=== PATIENT | male | born 1940 | race Caucasian/White ===

== ENCOUNTER → 2017-02-14 | Outpatient (CLI) | payer OTHER, BC ==
[~2017-02-14] MED LIST: ACETAMINOPHEN325 M1 PO; ADULT LOW DOSE81 MG PO; AMARYL2 M1 PO; AMARYL2 MG PO; AMITRIPTYLINE H50 M2 PO; ASPIR 8181 MG PO; ASPIRIN325 PO; ATORVASTATIN CA40 MG PO; BUPROPION XL300 MG PO; BYSTOLIC 5 MG5 M1 PO; CALCIUM 500 +1 EAC5 PO; CARBIDOPA-LEVO1 EA11 PO; CELEXA40 MG PO; CO Q-10100 MG PO; COZAAR 25 MG TA25 MG PO; D3 DOTS2000 UNIT PO; EFFEXOR XR75 MG PO; FINASTERIDE5 MG PO; FISH OIL 1,0001 EAC5 PO; FISHOIL; FLUOXETINE HCL40 MG PO; GABAPENTIN100 MG PO; GEMFIBROZIL 60600 MG PO; GLUCOSAMINE HC500 MG PO; HYDROCODON-ACE1 EAC7 PO; IMDUR120 MG PO; IRON PO; IRON325 PO; LEVOTHYROXIN0.025 M1 PO; LEVOTHYROXIN0.025 MG PO; LIPITOR40 MG PO; LOPRESSOR 50 MG50 M1 PO; METFORMIN HCL500 M2 PO; METFORMIN PO; METOCLOPRAMIDE10 MG PO; MOBIC15 MG PO; MOBIC7.5 MG PO; MOM PO; MULTIPLE VITAM1 EAC3 PO; MULTIVITAMINS PO; MULTIVITAMINS1 EAC7 PO; NEURONTIN 300300 M1 PO; NEURONTIN600 MG PO; NITROGLYCERIN0.4 MG SL; NITROSTAT0.4 MG PO; NITROSTAT0.4 MG SL; NORVASC5 MG PO; PERCOCET PO; PHISOHEX148 ML TP; PLAVIX 75 MG TA75 MG PO; PRILOSEC 20 MG20 MG PO; SENNA PO; TAMSULOSIN HCL0.4 MG PO; TOPROL XL50 MG PO; TRILEPTAL150 MG PO; VITAMIN B-1100 MG PO; VITAMIN D1000 UNI1 PO; ZOCOR80 MG PO
== END ==
LOC: SLEEPLAB 14:30
DX: G47.33 Obstructive sleep apnea (adult) (pediatric) (principal)

== ENCOUNTER → 2017-02-15 | Outpatient (CLI) | payer OTHER, BC | LOC: SLEEPLAB 06:00 | DX: G47.33 Obstructive sleep apnea (adult) (pediatric) (principal) ==

== ENCOUNTER → 2017-02-28 | Outpatient (CLI) | payer OTHER, BC ==
[~2017-02-28] VITALS: Ht 175.3 cm; Wt 94.5 kg
--- NOTE | ~2017-02-28 | HPC ---
[facility] [address] [place] [address] PAIN MANAGEMENT CONSULTATION Name: TONKIERRA MEGHAN Room #: REG [facility] Lester#: [id number] Admission: 02/28/17 Attend Phys: Ruben Driscoll DO Discharge: Date of : 40 Report #: [id number] THIS REPORT FOR: //name// CC: JARRED physician/PCP Ruben Driscoll DATE OF SERVICE: 02/28/2017 The patient is a pleasant 77-year-old gentleman seen about a year and a half ago in 08/2015, given epidural injection with about 50% improvement of baseline pain. The patient was somewhat lost to follow up. Returns to pain clinic today. We had a prolonged visit from [id number] (ultimately taken to the procedure room at 1500). The patient notes he has had 2 back surgeries since I saw him. Notes pain continues to be problematic primarily at the base of the spine. He notes pain is exacerbated with standing, walking, pretty much any axial weightbearing. He rates his pain a 5 on VAS. PHYSICAL EXAMINATION: Shows 77-year-old gentleman, BMI is 30.8 kilograms per meter squared. Vital signs are stable. He has a little bit of a tremor though the neurologist says he has taken him off carbidopa/levodopa. He is telling me that he does not have Parkinson's per se, he has a "form of Parkinson's" (?). He has a little bit of an ataxic gait, certainly antalgic. Lumbar flexion is limited to 45 degrees. He is able to bear weight on his toes and heels. Balance is poor. Very tender at the base of the spine L5-S1 area, really no significant tenderness over the SI joints. Rotation and sidebending exacerbates pain. Melodie test is minimally positive. MEDICATIONS: List was reconciled. The patient is off meloxicam. Was taken off gabapentin after a mini stroke. ASSESSMENT: Symptomatic lumbar spondylosis, lumbosacral spondylosis, history of multiple lumbar decompressive laminectomies and fusion. Axial back pain component. RECOMMENDATION: 1. Long discussion with the patient today about therapeutic option. 2. We will get x-rays of the lumbar spine, AP and lateral flexion and extension. 3. Bilateral L5-S1 facet joint injections under fluoroscopy today. 4. Follow up in 1-2 weeks to reevaluate. We will review diagnostic findings, may consider medial branch dorsal rami diagnostic blocks and consideration of neurolysis of same. [address] [address] PAIN MANAGEMENT CONSULTATION Name: KIERRA CAMILO Room #: REG S[facility] Batista#: [id number] Admission: 02/28/17 Attend Phys: Ruben Driscoll DO Discharge: Date of : 40 Report #: [id number] PROCEDURE: Bilateral L5-S1 facet joint injections under fluoroscopy, fluoroscopy time was under 15 seconds. PROCEDURE NOTE: After written informed consent was obtained, the patient was taken to fluoroscopy suite, placed in the prone position. After sterile prep and drape, skin wheal with Xylocaine was raised. A 22-gauge stylet needle was placed to contact the inferior aspect of the left L5-S1 facet joint. AP and lateral projections showed good needle placement. Second needle was placed in an identical fashion in the right SI joint. A 20 mg triamcinolone plus 1 mL of 0.5% preservative-free bupivacaine was injected at each site. Both needles were removed, area was cleansed, Band-Aids applied. The patient was monitored for an appropriate period of time, discharged in good and stable condition, noting good incremental improvement of baseline pain, pain was 5 on VAS on admission, was absent on discharge. We will get x-rays and follow up in 1-2 weeks. <ELECTRONICALLY SIGNED> By: Ruben Driscoll DO 03/02/17 0802 [id number] Ruben Driscoll DO /nt
[2017-02-28 14:11] VITALS: BP 141/84
== END | disposition home or self-care (01) ==
LOC: PAIN 07:28
DX: M47.816 Spondylosis without myelopathy or radiculopathy, lumbar region (principal); M47.817 Spondylosis without myelopathy or radiculopathy, lumbosacral region; Z98.890 Other specified postprocedural states; Z86.73 Personal history of transient ischemic attack (TIA), and cerebral infarction without residual deficits; Z79.82 Long term (current) use of aspirin; Z79.899 Other long term (current) drug therapy

== ENCOUNTER → 2017-03-24 | Outpatient (CLI) | payer OTHER, BC ==
[~2017-03-24] VITALS: Ht 175.3 cm; Wt 95.1 kg
--- NOTE | ~2017-03-24 | HPC ---
[facility] [place] [address] PAIN MANAGEMENT CONSULTATION Name: KIERRA CAMILO Room #: REG SANDHYA Batista#: [id number] Admission: 03/24/17 Attend Phys: Ruben Driscoll DO Discharge: Date of : 40 Report #: [id number] THIS REPORT FOR: //name// CC: Jb Driscoll DATE OF SERVICE: 03/24/2017 This 77-year-old gentleman well known to the pain clinic. He had a L4-L5 fusion. He has L5-S1 mediated pain across the low back. I had done an L5-S1 facet joint injection with excellent transient improvement of symptoms. Last visit, we did a bilateral L4 and L5 medial branch dorsal rami diagnostic blocks. The patient had excellent short term relief of pain. Did have symptoms prior to local anesthetic and a little bit of weak legs post procedure. This did resolve nicely. Returns to pain clinic today desirous of moving forward with radiofrequency neurolysis. Right side is a little worse than the left, we had elected to proceed with right-sided radiofrequency neurolysis L4-L5. PROCEDURE NOTE: After written informed consent was obtained including risks of increased pain, weakness, and paralysis, the patient wished to proceed. He was taken to the fluoroscopy suite and placed in prone position. After sterile prep and drape, skin with Xylocaine was raised x2 . 10 mm RFK needles were placed to contact the right sacral alar notch, second needle was placed to contact the superior articular process of L5, lateral to the L4-L5 facet joint. AP and lateral projections showed good needle placement corresponding to the right L4 and L5 medial branch dorsal rami nerves. Initial impedance, sensory and motor testing was accomplished. A 1 mL of 1% preservative-free Xylocaine was injected through each needle. Both needles were heated to 80 degrees centigrade for 90 seconds. A 20 mg triamcinolone plus 1 mL of 0.5% preservative-free bupivacaine was injected at each site. Both needles removed. The area was cleansed. Band-Aids applied. The patient monitored for an appropriate period of time. Did have a little weakness in the right leg secondary to local anesthetic spread. Again, this largely resolved after prolonged monitoring. Discharged in good and stable condition. Follow up in 1 week for consideration for left L4 and L5 dorsal rami neurolysis. <ELECTRONICALLY SIGNED> By: Ruben Driscoll DO 03/25/17 0731 1622 0529 Ruben Driscoll DO /nt
[2017-03-24 13:48] VITALS: BP 136/73
== END | disposition home or self-care (01) ==
LOC: PAIN 06:56
DX: M54.16 Radiculopathy, lumbar region (principal)

== ENCOUNTER → 2017-03-31 | Outpatient (CLI) | payer OTHER, BC | LOC: NUC 08:08 | DX: I25.10 Atherosclerotic heart disease of native coronary artery without angina pectoris (principal); I10 Essential (primary) hypertension; E78.5 Hyperlipidemia, unspecified; E11.9 Type 2 diabetes mellitus without complications; Z87.891 Personal history of nicotine dependence ==

== ENCOUNTER → 2017-04-11 | Outpatient (CLI) | payer OTHER, BC ==
--- NOTE | ~2017-04-11 | 2DMMODE ---
[facility] [address] [place] [address] 2 D/M-MODE ECHOCARDIOGRAM Name: TONKIERRAJONA CHRISTIANSON Room #: REG [facility]#: [id number] Admission: 04/11/17 Attend Phys: Terence Katz MD Discharge: Date of : 40 Date of Service: 04/11/17 1634 Report #: [id number] THIS REPORT FOR: //name// APPROVED REPORT Study performed: 04/11/2017 16:15:14 EXAM: Comprehensive 2D, Doppler, and color-flow Echocardiogram Patient Location: Out-Patient Room #: Echo lab Status: routine BSA: 2.09 HR: 69 bpm BP: 140/88 mmHg Other Information Study Quality: Adequate Indications Diabetes CAD Cardiomyopathy S^P CABG. 2D Dimensions RVDd: 40.18 mm LVEF(%): 35.11 (>50%) IVSd: 10.86 (7-11mm) LVOT Diam: 23.95 (18-24mm) LVDd: 50.66 mm PWd: 10.86 (7-11mm) Ascending Ao: 36.52 (22-36mm) LVDs: 42.12 (25-40mm) Aortic Root: 36.96 mm IVC: 19.00 mm Wilkes's LVEF: 35.11 % Volumes Left Atrial Volume (Systole) Single Plane 4CH: 50.09 mL Single Plane 2CH: 52.12 mL LA ESV Index: 26.00 mL/m2 Pulmonary Valve PV Peak Chris.: 1.04 m/s PV Peak Gr.: 4.29 mmHg ME End Vmax: 0.68 m/s Tricuspid Valve TR Peak Chris.: 1.99 m/s TR Peak Gr.: 15.89 mmHg [facility] [place] [address] [address] [place] [address] 2 D/M-MODE ECHOCARDIOGRAM Name: KIERRA CAMILO Room #: REG [facility]#: [id number] Admission: 04/11/17 Attend Phys: Terence Katz MD Discharge: Date of : 40 Date of Service: 04/11/17 1634 Report #: [id number] PA Pressure: 21.00 mmHg Left Ventricle Left ventricle is at the upper limits of normal. There is hypokinesis in the mid to basal inferior wall. Borderline concentric left ventricular hypertrophy. Left ventricular systolic function is mildly decreased. LVEF is 40-45%. This study is not technically sufficient to allow evaluation of the LV diastolic function. Right Ventricle The right ventricle is normal size. The right ventricular systolic function is normal. Atria Left atrium is at the upper limits of normal. Right atrium is at the upper limits of normal. Aortic Valve The aortic valve is sclerotic. Trace aortic regurgitation. There is no aortic valvular stenosis. Mitral Valve The mitral valve is normal in structure. Mild to moderate mitral regurgitation. No evidence of mitral valve stenosis. Tricuspid Valve The tricuspid valve is normal in structure. There is trace to mild tricuspid regurgitation. The right atrial pressure is estimated at mmHg. There is no pulmonary hypertension. Pulmonic Valve The pulmonary valve is normal in structure. Trace pulmonic regurgitation. Great Vessels The aortic root is normal in size. IVC is normal in size and collapses >50% with inspiration. Pericardium There is no pericardial effusion. <Conclusion> Left ventricle is at the upper limits of normal. Left ventricular systolic function is mildly decreased. There is hypokinesis in the mid to basal inferior wall. The right ventricle is normal size. [facility] [address] [place] [address] 2 D/M-MODE ECHOCARDIOGRAM Name: KIERRA CAMILO Room #: REG [facility]#: [id number] Admission: 04/11/17 Attend Phys: Terence Katz MD Discharge: Date of : 40 Date of Service: 04/11/17 1634 Report #: [id number] Left atrium is at the upper limits of normal. The aortic valve is sclerotic. Mild to moderate mitral regurgitation. There is no pericardial effusion. <ELECTRONICALLY SIGNED> By: Terence Katz MD 04/11/17 1634 1634 1634 Terence Katz MD /INF
== END ==
LOC: CV 06:45
DX: I42.9 Cardiomyopathy, unspecified (principal); I25.10 Atherosclerotic heart disease of native coronary artery without angina pectoris; E11.9 Type 2 diabetes mellitus without complications; I34.0 Nonrheumatic mitral (valve) insufficiency; I10 Essential (primary) hypertension; E78.00 Pure hypercholesterolemia, unspecified; Z95.1 Presence of aortocoronary bypass graft

== ENCOUNTER → 2018-05-30 | Outpatient (CLI) | payer OTHER, BC ==
[~2018-05-30] VITALS: Ht 175.3 cm; Wt 91.4 kg
[~2018-05-30] MED LIST changes: +LIPITOR80 MG PO; +MIDODRINE HCL 55 M1 PO; +NORVASC PO; +PAMELOR25 MG PO; +TOPROL XL25 MG PO; +UROXATRAL PO
--- NOTE | ~2018-05-30 | HPC ---
[facility] [place] [address] PAIN MANAGEMENT CONSULTATION Name: CAMILOKIERRA CHRISTIANSON Room #: REG [facility] Lester#: [id number] Admission: 05/30/18 Attend Phys: Sukumar Driscoll DO Discharge: Date of : 40 Report #: [id number] THIS REPORT FOR: //name// CC: Sharmila Sandersmonty Lainez DATE OF SERVICE: 05/30/2018 REFERRING NURSE PRACTITIONER: Sharmila Hill. CHIEF COMPLAINT: Low back pain. HISTORY OF PRESENT ILLNESS: As you know, the patient is a 78-year-old male who was followed by my partner, Dr. Ruben Driscoll, for an extended period of time, undergoing epidural injections to address lumbar radicular symptoms. He has undergone bilateral MBB x 2 with RFL of the lumbar medial branch nerves, with only transient improvement in symptoms. He sought evaluation through Neurosurgery, who advised the patient that he may be a candidate for a spinal cord stimulator versus intrathecal pump. Apparently, it was determined he was a good candidate for intrathecal pump, but there were concerns of his reaction to morphine, which is fairly classic histamine response to morphine infusions of pruritus. He has been referred back to our clinic to discuss spinal cord stimulator therapy. He denies new injury, new trauma or any changes in medical history since our last visit, except for his response to the intrathecal pump trial, which was effective, reporting 100% improvement in overall pain, but the side effects of pruritus were such that the patient and his are concerned that his side effects of the drug would be more profound than the improvement he received. ALLERGIES: DILIP INHIBITORS. CURRENT MEDICATIONS: Metformin 500 mg twice a day, levothyroxine 25 mcg per day, tamsulosin 0.4 mg once a day, finasteride 5 mg per day, glimepiride 2 mg per day, venlafaxine XR 75 mg per day, multivitamin 1 tab per day, aspirin 325 mg per day, atorvastatin 80 mg per day, metoprolol XL 25 mg a day, 10 mg per day and midodrine 5 mg twice a day. SOCIAL HISTORY: The patient denies tobacco, alcohol, IV or illicit drug use. He is retired. He is accompanied by his , who is present in the room today. IMAGING: There is no new imaging available. PQRS: The patient has osteoarthritic changes of the lumbar region. He has no rheumatoid arthritis. He is placing pain intensity at 9/10. He is a fall risk and has had multiple falls in the past 3 months. He is [place] [address] PAIN MANAGEMENT CONSULTATION Name: KIERRA CAMILO Room #: REG Jordy Batista#: [id number] Admission: 05/30/18 Attend Phys: Sukumar Driscoll DO Discharge: Date of : 40 Report #: [id number] of ambulatory device and we have advised him to initiate use of a cane, preferably a 4-prong cane or roller walker. He is not on blood thinners. He has history of hypertension. He is not on opioids. He has a low opioid addiction potential. His pain impact score is 62/70, indicating severe near complete interference of daily activities secondary to pain. PHYSICAL EXAMINATION: VITAL SIGNS: Blood pressure 107/75, pulse of 101 and respiratory rate 16 and unlabored. The patient is 95% on room air. Height 5 feet 9 inches tall, weight 201.6 pounds and BMI calculated 29.8. GENERAL: Well-developed, well-nourished and well-hydrated 78-year-old male, who appears his stated age, placing current pain score at 9-10/10. HEENT: Normocephalic, atraumatic. Pupils equal, round and reactive to light. Extraocular muscles are intact. EXTREMITIES: Show no clubbing, no cyanosis and no edema. MUSCULOSKELETAL: Lower extremity strength appears symmetrical, 5/5, intact to light touch from L1 through S2 dermatomes. Seated straight leg raising negative. Supine straight leg raising positive. Deep tendon reflexes 2+/4, patella and Achilles. Ankle clonus negative. Babinski is negative. ASSESSMENT: 1. Symptomatic lumbar radiculopathy. 2. Spinal stenosis of the lumbar spine. 3. 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 4. Lumbosacral spondylosis with radiculopathy. 5. Degeneration of the lumbar spine. 6. Chronic intractable pain. PLAN: 1. The patient has been referred back to our clinic by nurse practitioner, Sharmila Hill, for evaluation for possible spinal cord stimulator therapy. The patient has undergone multiple epidural injections, all of which have provided only transient improvement in symptoms. He has already undergone medial branch nerve blocks and radiofrequency lesioning of the lumbar medial branch nerves, with only mild pain improvement, lasting no more than 1 to 1-1/2 months of suboptimal response to that treatment. He subsequently discussed the possibility of undergoing intrathecal pump therapy with [facility] and did very well with the intrathecal pump trial; in fact, reporting 100% improvement in overall pain. He had no pain during the trial. He did have side effects to the morphine, fairly classic histamine response with pruritus that was difficult for the patient to tolerate as well as some nausea. Certainly this could be mitigated with utilizing either lower dose morphine or trialing other medications within the intrathecal pump. The patient was referred to our clinic to discuss the possible spinal cord stimulator trial implantation to address axial back pain and lower extremity symptoms. [facility] [address] [place] [address] PAIN MANAGEMENT CONSULTATION Name: CAMILOKIERRA MEGHAN Room #: REG [facility].#: [id number] Admission: 05/30/18 Attend Phys: Sukumar Driscoll DO Discharge: Date of : 40 Report #: [id number] We discussed with the patient today spinal cord stimulator therapy. We did advise the patient that capture of pain of the lower lumbar spine would not be possible with a spinal cord stimulator. These devices do not provide good benefit for arthritic changes in the lower back. They will help with his buttock and posterolateral thigh pain typical of lumbar radiculopathy, but improvement in his axial back pain would not be a possibility with the current spinal cord stimulator technology. We discussed this with the patient today, did provide the patient with information if he wishes to move forward with the spinal cord stimulator to address his buttock and lower extremity pain, which should be easily covered with the device. 2. The patient was given information about the spinal cord stimulator both in written and verbal form today. We spent over 29 minutes of time discussing the efficacy of the spinal cord stimulator. We talked about the trial, the device itself and the implantation of the device and the risks of having an implanted device, specifically with infection risks. We also discussed the fact that with a spinal cord stimulating device, imaging would have to be coordinated more carefully, though it does not preclude him from undergoing MRI imaging. The patient was given all this information today to review the information with his and to consider his options. 3. I did provide the patient with a referral to Psychiatry. As you know, requirements of Medicare require that patients undergo psychiatric evaluation before they can undergo implantation of a temporary spinal cord stimulating device and move on to permanent. He was given the names of psychiatrists in the area. If he wishes to move forward with this device, he needs to make an appointment and be seen. Once he is seen, we then can begin our process of approvals. 4. I had a very long discussion today with the patient and his about the intrathecal pump. The fact that he received 100% improvement in overall pain is quite encouraging. I recommended that the patient discuss this further with his neurosurgery team. It appears that his symptoms were related to morphine specifically. It is not unusual to have a histamine response to morphine causing pruritus that cannot be discontinued. There is also a possibility that the dosing given may be excessive for the patient's pathology and it can be reduced, which would reduce the side effects. Certainly a change in medication to something like hydromorphone could be more effective and reduce his potential side effects typically seen with morphine. The patient is planning to return to talk this over with his primary care physician and his neurosurgery team. 5. We wish to thank you for the opportunity to see the patient in consultation. We will be available to see the patient back in followup visit on an as-needed basis. We will be available to review the patient's psychiatric evaluation if he has not completed and we can keep you apprised of our moving forward if the patient wishes to do so with the spinal cord stimulator. [address] [address] PAIN MANAGEMENT CONSULTATION Name: KIERRA CAMILO Room #: REG SANDHYA Batista#: [id number] Admission: 05/30/18 Attend Phys: Sukumar Driscoll DO Discharge: Date of : 40 Report #: [id number] We wish to thank nurse practitioner Sharmila Hill for the referral of this patient back to our clinic. Again, we wish to thank you for this opportunity. By: 0824 1004 Sukumar Driscoll DO /nt
[2018-05-30 08:07] VITALS: BP 107/75
--- NOTE | 2018-05-30 08:19 | NUR ---
Pain Clinic Assessment: 1. History of Osteoarthritis: Not Applicable History of Rheumatoid Arthritis: Not Applicable 2. Height: 5 ft. 9 in. 175.3 cm. Weight: 201.6 lb. oz. 91.445 kg. Patient's BMI: 29.8 3. Vital Signs: BP: 107/75 Pulse: 101 Resp: 16 Temp: 02 Sat: 95 ECG Mon: 4. Pain Intensity: 9-10 5. Fall Risk: Dizziness: N Needs help standing or walking: Y Fallen in the last 3 months: Y Fall risk comments: 6. Patient on Blood Thinner: None 7. History of Hypertension: Y 8. Opioid Therapy greater than 6 weeks: N Opiate Contract Signed: 9. Risk Assessment Tool Provided: LOW RISK 05/18 10. Functional Assessment Tool: 11. Recreational Drug Use: Never Drug Type: Tobacco Use: Former Smoker Tobacco Type: Amount or Packs/day: How Many Years: Alcohol Use: Yes Frequency: Monthly Quant: 1
== END ==
LOC: PAIN 06:42
DX: M54.5 Low back pain (principal); G89.29 Other chronic pain; I10 Essential (primary) hypertension; Z79.899 Other long term (current) drug therapy; Z87.891 Personal history of nicotine dependence; Z72.89 Other problems related to lifestyle

== ENCOUNTER → 2018-08-31 | Outpatient (CLI) | payer OTHER, BC ==
--- NOTE | 2018-08-31 11:05 | 2DMMODE ---
[facility] [place] [address] 2 D/M-MODE ECHOCARDIOGRAM Name: TONKIERRAJONA CHRISTIANSON Room #: REG [facility]#: [id number] ������������� Admission: 08/31/18 ������������� Attend Phys: Terence Katz MD Discharge: ��� ������������� ��� Date of : 40 Date of Service: 08/31/18 1105 �� Report #: [id number] �������� ��������������������������������������������[id number] THIS REPORT FOR: //name// APPROVED REPORT Study performed: 08/31/2018 10:00:07 EXAM: Comprehensive 2D, Doppler, and color-flow Echocardiogram Patient Location: Out-Patient Room #: Echo lab 2 Status: routine BSA: 2.07 HR: 80 bpm BP: 138/78 mmHg Rhythm: NSR Other Information Study Quality: Adequate Indications CAD 2D Dimensions RVDd: 33.09 mm IVSd: 10.88 (7-11mm) LVOT Diam: 23.10 (18-24mm) LVDd: 46.39 mm PWd: 10.88 (7-11mm) Ascending Ao: 42.23 (22-36mm) LVDs: 41.00 (25-40mm) Aortic Root: 42.68 mm IVC: 17.00 mm Volumes Left Atrial Volume (Systole) Single Plane 4CH: 50.36 mL Single Plane 2CH: 54.46 mL LA ESV Index: 31.00 mL/m2 Aortic Valve AoV Peak Chris.: 1.14 m/s AO Peak Gr.: 5.19 mmHg LVOT Max P.56 mmHg LVOT Max V: 0.80 m/s JOCY Vmax: 2.94 cm2 Mitral Valve E/A Ratio: 0.6 MV Decel. Time: 320.71 ms MV E Max Chris.: 0.62 m/s [facility] [address] [address] 2 D/M-MODE ECHOCARDIOGRAM Name: TONKIERRAJONA CHRISTIANSON Room #: REG [facility]#: [id number] ������������� Admission: 08/31/18 ������������� Attend Phys: Terence Katz MD Discharge: ��� ������������� ��� Date of : 40 Date of Service: 08/31/18 1105 �� Report #: [id number] �������� ��������������������������������������������[id number] MV A Chris.: 1.10 m/s MV PHT: 93.01 ms IVRT: 207.61 ms Pulmonary Valve PV Peak Chris.: 1.10 m/s PV Peak Gr.: 4.90 mmHg Pulmonary Vein P Vein S: 0.54 m/s P Vein A: 0.23 m/s P Vein D: 0.21 m/s P Vein A Dur.: 83.0 msec P Vein S/D Ratio: 2.57 Tricuspid Valve TR Peak Chris.: 2.54 m/s TR Peak Gr.: 25.73 mmHg PA Pressure: 30.00 mmHg Left Ventricle The left ventricle is normal size. There is hypokinesis in the inferior wall. There is hypokinesis in the inferior wall. There is normal left ventricular wall thickness. Left ventricular systolic function is mildly decreased. LVEF is 45%. Grade I - abnormal relaxation pattern. Right Ventricle The right ventricle is normal size. The right ventricular systolic function is normal. Atria The left atrium size is normal. The right atrium size is normal. Aortic Valve The aortic valve is normal in structure. Aortic valve is calcified. Trace aortic regurgitation. There is no aortic valvular stenosis. Mitral Valve The mitral valve is normal in structure. Mild mitral regurgitation. No evidence of mitral valve stenosis. Tricuspid Valve The tricuspid valve is normal in structure. There is trace tricuspid regurgitation. Estimated PAP 30 mmHg. Pulmonic Valve [facility] [address] [place] [address] 2 D/M-MODE ECHOCARDIOGRAM Name: CAMILOKIERRA MEGHAN Room #: REG [facility]#: [id number] ������������� Admission: 08/31/18 ������������� Attend Phys: Terence Katz MD Discharge: ��� ������������� ��� Date of : 40 Date of Service: 08/31/18 1105 �� Report #: [id number] �������� ��������������������������������������������[id number] The pulmonary valve is normal in structure. There is no pulmonic valvular regurgitation. Great Vessels The aortic root is normal in size. IVC is normal in size and collapses >50% with inspiration. Pericardium There is no pericardial effusion. <Conclusion> The left ventricle is normal size. There is normal left ventricular wall thickness. Left ventricular systolic function is mildly decreased. LVEF is 45%. Grade I - abnormal relaxation pattern. The right ventricle is normal size. The left atrium size is normal. Aortic valve is calcified. Trace aortic regurgitation. Mild mitral regurgitation. There is trace tricuspid regurgitation. Estimated PAP 30 mmHg. ��������������������������������������������� <ELECTRONICALLY SIGNED> ���������������������������������������� By: Terence Katz MD ��������������������������������������������� 08/31/18 1105 1105 1105 Terence Katz MD /INF
== END ==
LOC: CV 09:12
DX: I08.0 Rheumatic disorders of both mitral and aortic valves (principal); I10 Essential (primary) hypertension

== ENCOUNTER → 2018-12-25 | Outpatient (CLI) | payer OTHER, BC | LOC: NUC 08:24 | DX: I25.10 Atherosclerotic heart disease of native coronary artery without angina pectoris (principal); E78.5 Hyperlipidemia, unspecified; I10 Essential (primary) hypertension; I48.91 Unspecified atrial fibrillation; I25.2 Old myocardial infarction; Z95.1 Presence of aortocoronary bypass graft ==

== ENCOUNTER → 2019-02-27 | Outpatient (CLI) | payer OTHER, BC | LOC: RAD 11:59 | DX: M48.062 Spinal stenosis, lumbar region with neurogenic claudication (principal); M43.26 Fusion of spine, lumbar region; M43.16 Spondylolisthesis, lumbar region; M41.86 Other forms of scoliosis, lumbar region ==

== ENCOUNTER 2019-06-21 10:57 | Inpatient (IN) | payer OTHER, BC ==
[~2019-06-21] VITALS: Ht 175.3 cm; Wt 120.5 kg
--- NOTE | ~2019-06-21 | EKG ---
[facility] [place] [address] ELECTROCARDIOGRAM REPORT Name: KIERRA CAMILO Room #: [facility].#: [id number] Admission: Attend Phys: Discharge: Date of : 40 Report #: [id number] THIS REPORT FOR: cc: Wilfredo Villalobos MD ~ THIS REPORT FOR: //name// [facility] ED Test Date: 2019-06-21 Test Time: 11:13:59 Pat Name: KIERRA CAMILO Department: Room: Gender: M Computer Art Instructor: LARA : 1940 Requested By: Jamie Mitchell Order Number: [id number] MD: Measurements Intervals [place] Rate: 113 P: 79 TN: 157 QRS: -50 QRSD: 130 T: 76 QT: 348 QTc: 478 Interpretive Statements Sinus tachycardia Nonspecific IVCD with LAD Anteroseptal infarct, old Compared to ECG 04/18/2017 07:01:56 Sinus rhythm no longer present Ventricular premature complex(es) no longer present T-wave abnormality no longer present Myocardial infarct finding still present [email or web address] By: 1113 1113 Epiphany EpiphanyMD /EPI
[2019-06-21 10:58] VITALS: BP 200/146
[2019-06-21 12:12] LABS: ABSOLUTE NEUTROPHILS 7.7 thou/uL (1.4-8.2); BASOPHILS 0.5 % (0.0-2.0); EOSINOPHILS 1.2 % (0.0-3.0); HEMATOCRIT 46.4 % (42.0-52.0); HEMOGLOBIN 15.5 gm/dL (14.0-18.0); LYMPHOCYTES 18.1 % (24.0-44.0); MCH 30.7 pg (26.0-34.0); MCHC 33.3 g/dL (28.0-37.0); MCV 92.1 fL (80.0-100.0); MONOCYTES 7.7 % (1.0-8.0); PLATELET COUNT 258 thou/uL (150-400); POLYS 72.5 % (36.0-66.0); RBC 5.05 mil/uL (4.50-6.00); RDW 13.8 % (10.5-14.5); WBC 10.6 thou/uL (4.0-11.0)
[2019-06-21 12:14] LABS: URINE BILIRUBIN NEGATIVE (Negative); URINE BLOOD 1+ (Negative); URINE CLARITY CLEAR; URINE COLOR YELLOW; URINE GLUCOSE-RANDOM* NEGATIVE (Negative); URINE KETONES NEGATIVE (Negative); URINE LEUKOCYTES-REFLEX NEGATIVE (Negative); URINE NITRITE-REFLEX NEGATIVE (Negative); URINE PROTEIN (DIPSTICK) 1+ (Negative); URINE SPECIFIC GRAVITY >= 1.030 (1.005-1.035); URINE UROBILINOGEN 0.2 E.U./dl (0.2-1.0)
[2019-06-21 12:15] LABS: CALCIUM 9.4 mg/dL (8.5-10.1); CREATININE 1.3 mg/dL (0.7-1.3); POTASSIUM 3.6 mmol/L (3.5-5.1)
[2019-06-21 12:22] LABS: AMP/METHAMP Negative (Negative); BARBITURATES Negative (Negative); BENZODIAZEPINES Negative (Negative); COCAINE Negative (Negative); METHADONE Negative (Negative); OPIATES Negative (Negative); PCP Negative (Negative)
[2019-06-21 12:24] LABS: ALBUMIN 4.3 g/dL (3.4-5.0); TOTAL BILIRUBIN 0.5 mg/dL (<0.1-1.0); TOTAL PROTEIN 8.1 g/dL (6.4-8.2)
[2019-06-21 12:26] LABS: TROPONIN-I 5.94 ng/mL (<0.06)
[2019-06-21 12:53] LABS: SQUAMOUS 4-10 Moderate /LPF (0-3)
[2019-06-21 12:54] LABS: AMORPHOUS URATES Moderate /LPF (None Seen); BACTERIA-REFLEX 1-9 Few /HPF (None Seen); CASTS None Seen /LPF (None Seen); URINE RBC 0-2 Rare /HPF (0-2); URINE WBC-REFLEX 0-5 Rare /HPF (0-5)
[2019-06-21 13:08] LABS: INR 1.2
[2019-06-21 13:09] LABS: APTT 23.8 Seconds (24.5-32.8)
[2019-06-21 13:38] VITALS: BP 142/93
[2019-06-21] MEDS ORDERED: PROSCAR 5MG TABL5 M1 PO (13:41)
[2019-06-21] MEDS ORDERED: LIPITOR80 MG PO (13:41)
[2019-06-21] MEDS ORDERED: NORVASC 2.5 MG2.5 M1 PO (13:41)
[2019-06-21] MEDS ORDERED: LEVO-T50 MCG PO (13:42)
[2019-06-21] MEDS ORDERED: FENOFIBRATE150 MG PO (13:42)
[2019-06-21] MEDS ORDERED: TOPROL XL50 MG PO (13:43)
[2019-06-21] MEDS ORDERED: MIDODRINE HCL2.5 M1 PO (13:43)
[2019-06-21] MEDS ORDERED: METFORMIN HCL500 M3 PO (13:43)
[2019-06-21] MEDS ORDERED: VENLAFAXINE HC150 MG PO (13:44)
[2019-06-21] MEDS ORDERED: OSTERA TABLET1 EAC1 PO (13:45)
[2019-06-21] MEDS ORDERED: ASPIR-TRIN325 MG PO (13:45)
[2019-06-21 13:54] LABS: CHOLESTEROL 245 mg/dL (<200); HDL CHOLESTEROL 41 mg/dL (>40); LDL CHOLESTEROL 155 mg/dL (<100); TRIGLYCERIDE 248 mg/dL (<150); VLDL 50 mg/dL (<40)
--- NOTE | 2019-06-21 15:30 | NUR ---
WRITTEN AFFIDAVIT COMPLETED AT THIS TIME BY CARMELO Russell RN
--- NOTE | 2019-06-21 15:40 | NUR ---
WRITTEN AFFIDAVIT COMPLETED BY THE PT'S
--- NOTE | 2019-06-21 17:10 | 2DMMODE ---
[facility] [place] [address] 2 D/M-MODE ECHOCARDIOGRAM Name: KIERRA CAMILO Room #: 170-4 ADM IN M.R.#: [id number] Admission: 06/21/19 Attend Phys: Sarah Woodard MD Discharge: Date of : 40 Report #: [id number] THIS REPORT FOR: cc: Jb Lainez Theodore M. DO Park, Jin S. MD ~ APPROVED REPORT Study performed: 06/21/2019 15:17:07 EXAM: Comprehensive 2D, Doppler, and color-flow Echocardiogram Patient Location: Bedside Room #: 170 BSA: 2.05 HR: 90 bpm BP: 121/76 mmHg Rhythm: NSR Other Information Study Quality: Fair Indications Diabetes CAD Elevated Troponin Hypertension/HDD 2D Dimensions IVSd: 12.80 (7-11mm) LVOT Diam: 23.89 (18-24mm) LVDd: 55.94 mm PWd: 12.76 (7-11mm) Ascending Ao: 39.82 (22-36mm) LVDs: 44.13 (25-40mm) Aortic Root: 41.25 mm Volumes Left Atrial Volume (Systole) Single Plane 4CH: 49.18 mL Single Plane 2CH: 44.44 mL LA ESV Index: 24.00 mL/m2 Aortic Valve AoV Peak Chris.: 1.10 m/s AO Peak Gr.: 4.84 mmHg LVOT Max P.79 mmHg LVOT Max V: 0.67 m/s [facility] [place] [address] 2 D/M-MODE ECHOCARDIOGRAM Name: CAMILOKIERRA MEGHAN Room #: 170-4 ADM IN M.R.#: [id number] Admission: 06/21/19 Attend Phys: Sarah Woodard MD Discharge: Date of : 40 Report #: [id number] Vmax: 2.73 cm2 Pulmonary Valve PV Peak Chris.: 1.33 m/s PV Peak Gr.: 7.04 mmHg Left Ventricle Left ventricle is at the upper limits of normal. There is hypokinesis in the posterior wall. There is hypokinesis in the inferior wall. Mild concentric left ventricular hypertrophy. Left ventricular systolic function is mildly decreased. LVEF is 45%. Grade I - abnormal relaxation pattern. Right Ventricle The right ventricle is normal size. The right ventricular systolic function is normal. Atria The left atrium size is normal. The right atrium size is normal. Aortic Valve The aortic valve is normal in structure. Aortic valve is calcified. Trace to mild aortic regurgitation. There is no aortic valvular stenosis. Mitral Valve The mitral valve is normal in structure. Moderate to severe mitral regurgitation No evidence of mitral valve stenosis. Tricuspid Valve The tricuspid valve is normal in structure. There is no tricuspid valve regurgitation noted. Pulmonic Valve The pulmonary valve is normal in structure. Mild pulmonic regurgitation. Great Vessels The aortic root is normal in size. IVC is not well visualized. Pericardium There is no pericardial effusion. <Conclusion> Left ventricle is at the upper limits of normal. [facility] [address] [place] [address] 2 D/M-MODE ECHOCARDIOGRAM Name: TONKIERRA MEGHAN Room #: 170-4 ADM IN .R.#: [id number] Admission: 06/21/19 Attend Phys: Sarah Woodard MD Discharge: Date of : 40 Report #: [id number] Mild concentric left ventricular hypertrophy. Left ventricular systolic function is mildly decreased. LVEF is 45%. Grade I - abnormal relaxation pattern. The right ventricle is normal size. The left atrium size is normal. Aortic valve is calcified. Moderate to severe mitral regurgitation There is no tricuspid valve regurgitation noted. <ELECTRONICALLY SIGNED> By: Terence Katz MD 06/21/191708 08 08 Terence Katz MD /INF
[2019-06-21 17:42] VITALS: BP 122/77
--- NOTE | 2019-06-21 18:31 | NUR ---
RECEIVED REPORT ON PT AT 1830,ROOM SET UP. PT WILL BE 1:1 SITTER. IF PT COMES BEFORE SHIFT CHANGE WILL START ADMISSION
[2019-06-21 18:37] VITALS: BP 137/71
[2019-06-21 18:58] VITALS: BP 129/85
[2019-06-21 23:06] LABS: GLYCOHEMOGLOBIN (HGB A1C) 7.1 % (4.8-5.6)
[2019-06-22 00:13] VITALS: BP 168/96
[2019-06-22 04:01] VITALS: BP 122/87
[2019-06-22 05:21] LABS: POTASSIUM 3.7 mmol/L (3.5-5.1)
[2019-06-22 05:24] LABS: HEMATOCRIT 42.7 % (42.0-52.0); HEMOGLOBIN 14.4 gm/dL (14.0-18.0); MCH 30.7 pg (26.0-34.0); MCHC 33.7 g/dL (28.0-37.0); MCV 91.3 fL (80.0-100.0); RBC 4.68 mil/uL (4.50-6.00); RDW 13.9 % (10.5-14.5); WBC 8.9 thou/uL (4.0-11.0)
--- NOTE | 2019-06-22 06:12 | NUR ---
ASSUMED PT CARE AROUND 1900. PT WAS IN ROOM WITH EYES CLOSED. PT AT BEDSIDE. PT WOULD RESPOND TO BEING SPOKEN TO. PT WAS WITHDRAWN AND TIRED. PT HAS SITTER IN ROOM AND LOCATED CLOSE TO NURSING STATION. PT HAD CRITICAL LAB THIS MORNING, PHYSICIAN NOTIFIED AND ORDERS RECEIVED TO REDRAW LAB. PT RESPONDS TO STIMULATION. WILL CONTINUE TO MONITOR.
[2019-06-22] MEDS ORDERED: GLIMEPIRIDE1 MG PO (09:45)
[2019-06-22] MEDS ORDERED: LUMIGAN2.5 M1 OP (09:47)
--- NOTE | 2019-06-22 11:28 | NUR ---
AAOX4. COOPERATIVE. SUICIDAL IDEATION PERSISTS. AT BEDSIDE. SR WITH PVC'S PER TELE. SITTER AT BEDSIDE. PT STATES HE HAS LOST HIS CAODAISM D/T OF HIS ONLY TWO SONS, ONE RECENTLY. WILL CONTINUE TO FOLLOW CLOSELY.
[2019-06-22 11:52] VITALS: BP 132/86
[2019-06-22 15:30] VITALS: BP 78/53
[2019-06-22 15:52] LABS: TSH 3.583 uIU/mL (0.358-3.740)
--- NOTE | 2019-06-22 16:34 | NUR ---
Case opened to follow for dc planning. technical document writer visited with the pt and his at bedside. The pt was a&ox4 but tearful. Pt is anticipating cardiac cath on Tuesday then eval for SBU (inpt psych). He is agreeable to inpt mental health tx at [facility]. Pt reports he has been struggling with depression and loss. He had a stroke in Dec 2018 and his dtr/best friend in Mar 2019 unexpectantly of an [place]. He and his have her adult son and a grandson living with them. His stepson has been strugging with a divorce, substance abuse and a suicide attempt which has made their home very stressful. Pt's spouse is supportive and has been seeking support through their advent and a couselor. He is agreeable to going with her as well. He is retired and normally indep with gait and adl's. He has has some residual rle weakness from his stroke and this does frustrate him. Support provied and cm role introduced. Will f/u early next week for SBU eval and likely inpt psych placement at [facility].
--- NOTE | 2019-06-22 17:43 | NUR ---
DR. BORGES HAS SEEN. REPORTEDLY PATIENT STATED HE IS AMENABLE TO INPATIENT PSYCH ONCE CARDIAC INTERVENTIONS ALLOW.
[2019-06-22 20:38] VITALS: BP 137/87
[2019-06-23] VITALS (12 sets, daily range): BP systolic 105–150; BP diastolic 68–93
--- NOTE | 2019-06-23 07:50 | NUR ---
ASSUME CARE 1900. PT/VITALS STABLE. DENIES ANY PAIN. MODERATE TOLERANCE TO ACTIVITY. NO DISTRESS, ANXEITY, DEPRESSION, OR WITHRAWN AFFECT NOTED. PATIENT IS CHEERFUL, DISCUSSES APPROPRITELY WITH , SITTER, AND NURSE. PT IS COORPERATIVE, CALM, AND PLEASANT AND ENGAGES SWITH CONVERSATION. ADEQUATE REST NOTED THROUGH THE NIGHT. PROGRESSING WELL WITH POC. PLAN IS TO DO CARDIAC CATHERIZATION ON TUESDAY DUE TO ELEVATED TROP AND THEN POSSIBLE DISCHARGE TO INPATIENT PSYCH. WILL CONITNUE TO MONITOR AND FOLLOW WITH POC
--- NOTE | 2019-06-23 14:41 | NUR ---
ASSUMED CARE PT SHIFT CHANGE. ASSESSMENTS CHARTED. VANCE FONTENOT PER JUL. PT ALERT AND ORIENTED. VSS. DENIES PAIN. O2 SATS WNL ON ROOM AIR. DENIES SOB/CHEST PAIN. PT BEGAN TO C/O COLD AND CLAMMY, SKIN WARM AND DIAPHORETIC, CARDIOLOGY AWARE, ORDERS RECEIVED. PT SENT TO BILL RECAPITULATION CLERK--SEE REPORT. PT RETURNED. AT BEDSIDE. RIGHT GROIN SITE CDI, NO HEMATOMA. POST CATH VSS. SITTER REMAINS IN ROOM FOR ONE ON ONE. PT CURRENTLY RESTING IN BED DENYING OF NEEDS. WILL PASS ON REPORT TO NURSE.
[2019-06-23 23:06] LABS: TRICYCLIC (TCA) CONFIRMATION Negative ng/mL (Cutoff=100)
[2019-06-24 04:37] VITALS: BP 138/86
[2019-06-24 05:45] LABS: HEMATOCRIT 37.1 % (42.0-52.0); MCH 30.2 pg (26.0-34.0); MCHC 33.2 g/dL (28.0-37.0); MCV 91.1 fL (80.0-100.0); RBC 4.07 mil/uL (4.50-6.00); RDW 13.8 % (10.5-14.5); WBC 8.3 thou/uL (4.0-11.0)
[2019-06-24 05:46] LABS: HEMOGLOBIN 12.3 gm/dL (14.0-18.0)
[2019-06-24 06:15] LABS: CALCIUM 8.6 mg/dL (8.5-10.1); POTASSIUM 3.6 mmol/L (3.5-5.1)
--- NOTE | 2019-06-24 08:30 | NUR ---
ASSUME CARE 1900. PT/VITALS STABLE. DENIES PAIN. TOLERATES ACTIVITY WELL. NO DISTRESS, NO DEPRESSION, AND PT US NOT WITHDRAWN. VERY CHEERFUL AND PLEASANT PATIENT WHO ENGAGES IN CONVERSATION AND THE EXAMINATION. SITTER IN WITH PATIENT. ASSESSMENT CHARTED. PROGRESSING WELL WITH POC. CATH DONE WITH NO INTERVENTION. PLAN IS DISCHARGE TO INPATIENT PSYCH. WILL CONITNUE TO MONITOR AND FOLLOW WITH POC
--- NOTE | 2019-06-24 16:51 | NUR ---
ASSUMED CARE 0700, ALERT X4, VS STABLE, DENIES CHEST PAIN, DENIES SOB. NSR ON TELE, RIGHT GROIN SITE C/D/I. UP WITH STAND BY. CONTINIENT TO BATHROOM. SITTER BEDSIED FOR SUICIDE PRECAUTIONS, PT WITH TRANSFER TO [facility] ON TUESDAY. CALL LIGHT IN REACH.
--- NOTE | 2019-06-24 16:53 | CATHLAB ---
[facility] [place] [address] INVASIVE PROCEDURE REPORT Name: KIERRA CAMILO Room #: 215-P ADM IN M.R.#: [id number] Admission: 06/21/19 Attend Phys: Sarah Woodard MD Discharge: Date of : 40 Report #: [id number] THIS REPORT FOR: cc: Jb Lainez Theodore M. DO Mancuso, Gerald M. MD [facility] ~ APPROVED REPORT Study performed: 06/23/2019 11:08:05 Patient Details Patient Status: In-Patient Room #: 215 The patient is a 79 year-old male Event Personnel Laron Schmidt MD; Leslie Andre RN; Marcos Lebron RTR, Scrub: Lexi Torres RTR, Monitor Procedures Performed Right and Left Heart Catheterization with Coronary Bypass Grafts; Abdominal Aortogram; Hemostasis with Mynx; Hemostasis with Manual Pressure Indication Chest pain Procedure Narrative A 6F sheath was inserted into the RFA. Coronary angiography was performed using coronary diagnostic catheters. The right coronary system was accessed and visualized with a JR4 catheter. The left coronary system was accessed and visualized with a JL5 catheter. The left ventricle was accessed and visualized with a Pigtail catheter. Left ventriculogram was performed in 30 degree projection. An aortogram of the abdominal aorta was performed. Closure device was deployed with a 6 Fr MynxGrip. Hemostasis was obtained with manual pressure following sheath removal without any complications. The patient tolerated the procedure well and there were no complications associated with the procedure. There was no hematoma. Intraoperative Conscious Sedation Sedation start time: 11:38 Case end Time: 12:28 Fentanyl 50.0 mcg Versed 1.0 mg [facility] [address] [place] [address] INVASIVE PROCEDURE REPORT Name: CAMILOKIERRA CHRISTIANSON Room #: 215-P [facility] IN [facility]#: [id number] Admission: 06/21/19 Attend Phys: Sarah Woodard MD Discharge: Date of : 40 Report #: [id number] Fluoro Time: 13.51 minutes Dose: DAP 95961.07 cGycm2 1204 mGy Contrast Type and Amount: Visipaque-125ml Hemodynamics The right atrial mean pressure is 10 mmHg. The right ventricular pressure is 41/5/11 mmHg. The pulmonary artery pressure is 28/19 mmHg with a mean of 22 mmHg. The mean pulmonary capillary wedge pressure is 16 mmHg. The aortic pressure is 139/73 mmHg with a mean of 94 mmHg. The left ventricular pressure is 132/12 mmHg with a mean of mmHg. The left ventricular end diastolic pressure is 18 mmHg. The cardiac output using thermo method is 3.73 L/min. The cardiac index using thermo method is 1.83 L/min/m2. 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 Faint filling of the distal OM branch also noted #6 SVG to PDA is intact proximal PDA is a 60-70% eccentric lesion this is unchanged. PDA is mildly disease as is the posterior lateral system some collateral filling to the OM from this system. 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 And mildly diseased iliac system. Recommendations and plan: There is no significant interval change. Slight bump in troponin may be a remnant occlusion of what was left February small proximal LAD. No indication for intervention. Continued aggressive medical therapy. <ELECTRONICALLY SIGNED> By: Laron Schmidt MD, FACC 06/24/191651 51 51 Laron Schmidt MD, FACC /INF
[2019-06-24 19:28] VITALS: BP 136/69
[2019-06-25 03:10] VITALS: BP 147/103
--- NOTE | 2019-06-25 04:48 | NUR ---
ASSESSMENT DOCUMENTED.PT BEEN RESTING IN NO ACUTE DISTRESS.SITTER AT BEDSIDE.NO BEHAVIORAL ISSUES NOTED OR VOICED.DENIES ANY NEEDS.NO CONCERNS VOICED AT THIS TIME.WILL CONT TO MONITOR PER POC.
[2019-06-25 09:09] VITALS: BP 147/72
--- NOTE | 2019-06-25 12:08 | NUR ---
ASSUMED CARE 0700, ALERT X4, DENIES SOB, DENIES CHEST PAIN, GROIN SITE C/D/I. STEADY UP WITH STAND BY. ST EVAL WITH INTERVENTIONS IN PLACE, NO STRAWS, SMALL BITES SEE ORDERS FOR DETAILS, WITH VOICED SHE THOUGHT PT CONFUSED THIS MORNING. NOTIFIED DR BORGES. SNR ON TELE. WILL DC TO [facility] AFTER LUNCH.
[2019-06-25] MEDS ORDERED: FELODIPINE 5 MG5 M1 PO (14:12)
[2019-06-25] MEDS ORDERED: METFORMIN HCL500 MG PO (14:13)
[2019-06-25] MEDS ORDERED: PEPCID20 MG PO (14:13)
[2019-06-26] MEDS ORDERED: TOPROL XL50 MG PO (02:19)
[2019-06-26] MEDS ORDERED: EFFEXOR XR150 MG PO (02:20)
[2019-06-26] MEDS ORDERED: GLIMEPIRIDE1 MG PO (02:21)
[2019-06-26] MEDS ORDERED: LUMIGAN2.5 M1 OPHTHALMIC (02:22)
[2019-06-26] MEDS ORDERED: FELODIPINE ER2.5 MG PO (02:23)
--- NOTE | 2019-06-27 12:42 | EKG ---
[facility] [place] [address] ELECTROCARDIOGRAM REPORT Name: KIERRA CAMILO Room #: 215-P [facility] IN M.R.#: [id number] Admission: 06/21/19 Attend Phys: Sarah Woodard MD Discharge: 06/25/19 Date of : 40 Report #: [id number] THIS REPORT FOR: cc: Jb Lainez Theodore M. DO Lundgren, Craig H. MD [facility] ~ THIS REPORT FOR: //name// [facility] Test Date: 2019-06-23 Test Time: 10:15:58 Pat Name: KIERRA CAMILO Department: Room: 215 P Gender: M Refrigeration Service Technician: SASHA : 1940 Requested By: Laron Schmidt Order Number: [id number] MD: Kishan Naik Measurements Intervals [place] Rate: 80 P: 8 AK: 171 QRS: -34 QRSD: 135 T: 139 QT: 442 QTc: 510 Interpretive Statements Sinus rhythm Ventricular premature complex IVCD Anterior infarct, old Abnormal T, consider ischemia, lateral leads Compared to ECG 06/22/2019 08:44:47 No significant changes Electronically Signed On 06-25-2019 7:26:06 INJECTION MOLDING OPERATOR by Kishan Naik [email or web address] <ELECTRONICALLY SIGNED> By: Kishan Naik MD, FAC 06/25/19 0726 1015 1015 Kishan Naik MD, [facility] /EPI
--- NOTE | 2019-06-27 12:42 | EKG ---
[facility] [place] [address] ELECTROCARDIOGRAM REPORT Name: KIERRA CAMILO Room #: 215-P [facility] IN M.R.#: [id number] Admission: 06/21/19 Attend Phys: Sarah Woodard MD Discharge: 06/25/19 Date of : 40 Report #: [id number] THIS REPORT FOR: cc: Jb Lainez Theodore M. DO Lundgren, Craig H. MD [facility] ~ THIS REPORT FOR: //name// [facility] Test Date: 2019-06-22 Test Time: 08:44:47 Pat Name: KIERRA CAMILO Department: Room: 215 P Gender: M Technical Marketing Consultant: POOJA : 1940 Requested By: Terence Katz Order Number: [id number] MD: Kishan Naik Measurements Intervals [place] Rate: 90 P: 34 IN: 162 QRS: -59 QRSD: 123 T: 164 QT: 382 QTc: 468 Interpretive Statements Sinus rhythm Ventricular premature complex Nonspecific IVCD with LAD Anteroseptal infarct, old Abnormal T, consider ischemia, lateral leads Compared to ECG 06/21/2019 11:13:59 Ventricular premature complex(es) now present Electronically Signed On 06-22-2019 9:10:16 GEOSPATIAL INFORMATION SCIENTIST by Kishan Naik [email or web address] <ELECTRONICALLY SIGNED> By: Kishan Naik MD, [facility] 06/22/1910 3 3 Kishan Naik MD, [facility] /EPI
== END 2019-06-25 14:39 | DRG 917 ==
LOC: ER 10:57 → EROBS 13:47 → 2N 13:47
PROVIDERS: Emergency Medicine; Internal Medicine; ADMIT Internal Medicine
PROC: 5A09357 Assistance with Respiratory Ventilation, Less than 24 Consecutive Hours, Continuous Positive Airway Pressure (ICD-10-PCS; principal; 2019-06-21)
PROC: 5A09357 Assistance with Respiratory Ventilation, Less than 24 Consecutive Hours, Continuous Positive Airway Pressure (ICD-10-PCS; 2019-06-22)
PROC: B215YZZ Fluoroscopy of Left Heart using Other Contrast (ICD-10-PCS; 2019-06-23)
PROC: 5A09357 Assistance with Respiratory Ventilation, Less than 24 Consecutive Hours, Continuous Positive Airway Pressure (ICD-10-PCS; 2019-06-23)
PROC: 4A023N8 Measurement of Cardiac Sampling and Pressure, Bilateral, Percutaneous Approach (ICD-10-PCS; 2019-06-23)
PROC: B211YZZ Fluoroscopy of Multiple Coronary Arteries using Other Contrast (ICD-10-PCS; 2019-06-23)
PROC: B218YZZ Fluoroscopy of Left Internal Mammary Bypass Graft using Other Contrast (ICD-10-PCS; 2019-06-23)
PROC: B213YZZ Fluoroscopy of Multiple Coronary Artery Bypass Grafts using Other Contrast (ICD-10-PCS; 2019-06-23)
PROC: B410YZZ Fluoroscopy of Abdominal Aorta using Other Contrast (ICD-10-PCS; 2019-06-23)
PROC: 5A09357 Assistance with Respiratory Ventilation, Less than 24 Consecutive Hours, Continuous Positive Airway Pressure (ICD-10-PCS; 2019-06-24)
DX: T40.4X2A Poisoning by other synthetic narcotics, intentional self-harm, initial encounter (principal); G92 Toxic encephalopathy; I21.4 Non-ST elevation (NSTEMI) myocardial infarction; T82.858A Stenosis of other vascular prosthetic devices, implants and grafts, initial encounter; Q21.1 Atrial septal defect; Y84.0 Cardiac catheterization as the cause of abnormal reaction of the patient, or of later complication, without mention of misadventure at the time of the procedure; Y92.234 Operating room of hospital as the place of occurrence of the external cause; I25.10 Atherosclerotic heart disease of native coronary artery without angina pectoris; I10 Essential (primary) hypertension; Z96.1 Presence of intraocular lens; E11.42 Type 2 diabetes mellitus with diabetic polyneuropathy; G20 Parkinson's disease; E78.5 Hyperlipidemia, unspecified; F32.9 Major depressive disorder, single episode, unspecified; G47.30 Sleep apnea, unspecified; E78.00 Pure hypercholesterolemia, unspecified; M19.90 Unspecified osteoarthritis, unspecified site; G47.00 Insomnia, unspecified; E03.9 Hypothyroidism, unspecified; N40.0 Benign prostatic hyperplasia without lower urinary tract symptoms; R29.6 Repeated falls; I95.1 Orthostatic hypotension; I25.5 Ischemic cardiomyopathy; E11.51 Type 2 diabetes mellitus with diabetic peripheral angiopathy without gangrene; G47.33 Obstructive sleep apnea (adult) (pediatric); F02.80 Dementia in other diseases classified elsewhere, unspecified severity, without behavioral disturbance, psychotic disturbance, mood disturbance, and anxiety; R13.10 Dysphagia, unspecified; R53.81 Other malaise; I72.2 Aneurysm of renal artery; Z87.11 Personal history of peptic ulcer disease; Z79.899 Other long term (current) drug therapy; Z79.84 Long term (current) use of oral hypoglycemic drugs; Z88.8 Allergy status to other drugs, medicaments and biological substances; Z91.81 History of falling; Z95.1 Presence of aortocoronary bypass graft; Z95.5 Presence of coronary angioplasty implant and graft; Z86.73 Personal history of transient ischemic attack (TIA), and cerebral infarction without residual deficits; Z98.42 Cataract extraction status, left eye; Z98.41 Cataract extraction status, right eye; Z87.19 Personal history of other diseases of the digestive system; Y92.89 Other specified places as the place of occurrence of the external cause; Z87.891 Personal history of nicotine dependence
CPT/HCPCS: 10081

== ENCOUNTER 2019-06-25 15:08 | Inpatient (IN) | payer OTHER, BC ==
[~2019-06-25] VITALS: Ht 177.8 cm; Wt 88.7 kg
[~2019-06-25 15:08] MED LIST changes: +ASPIR-TRIN325 MG PO; +FELODIPINE 5 MG5 M1 PO; +FENOFIBRATE150 MG PO; +GLIMEPIRIDE1 MG PO; +LEVO-T50 MCG PO; +LUMIGAN2.5 M1 OP; +METFORMIN HCL500 M3 PO; +METFORMIN HCL500 MG PO; +MIDODRINE HCL2.5 M1 PO; +NORVASC 2.5 MG2.5 M1 PO; +OSTERA TABLET1 EAC1 PO; +PEPCID20 MG PO; +PROSCAR 5MG TABL5 M1 PO; +VENLAFAXINE HC150 MG PO
--- NOTE | 2019-06-25 16:07 | NUR ---
Pt TO TRANSFER UP TO [facility]S [facility]IT TODAY. WILL PLAN TO EVALUATE Pt AFTER ADMISSION TO NEW UNIT AFTER NEW PT ORDER RECEIVED TO ASSESS FOR PT NEEDS.
--- NOTE | 2019-06-25 16:20 | NUR ---
79 YEAR OLD MALE ARRIVES VIA BED FROM CCU. PER RN REPORT FROMCCU ON Jun OVERDOSED ON APPROX. 20 TRAMADOL PILLS IN ATTEMPT TO KILL SELF. UPON ARRIVAL TO FLOOR IS COOPERATIVE AND PLEASANT ABLE TO ANSWER QUESTIONS FOR ADMIS INTERVIEW-MEMORY GROSSLY INTACT. CONSTRICTED AFFECT. DENIES CURRENT SI/SH OR HI STATING "SINCE I OVERDOSED I HAVE HAD THE SUPPORT OF SO MANY PEOPLE I FEEL LESS ALONE" GAIT IS UNSTEADY -PROVIDED WITH ROLLER WALKER AND PLACED ON FALL PRECAUTIONS.
[2019-06-25 17:15] VITALS: BP 144/84
[2019-06-25 20:13] VITALS: BP 145/92
[2019-06-25 23:30] VITALS: BP 145/92
--- NOTE | 2019-06-26 01:18 | NUR ---
06/25/19 @ 1930 Patient up ad jeffry with walker. Gait slow and steady with occasional ataxia. Pt. currently in Day Room interacting with other patients and talking with on wireless phone. Pt.'s affect is anxious. 06/25/19 @ 194 Pt.'s called and stated, "I don't think he's going to make it there". When asked to explain she stated that he is "surrounded by crazies" and that "strange women were coming up to him and saying wierd things to him". She also expressed concern that he was not getting 1:1 care and counseling. Rules, regulations, and aims of treatment were discussed with . She then asked if she could "come up there now and discharge him"? Pt.'s was then referred to lockstitch topstitcher.
--- NOTE | 2019-06-26 02:08 | NUR ---
This nurse took phone call from patient's this shift. irritable about patient being on [facility] unit. Stating that she was not involved in patient being transferred to this unit as much as she would like. Reports that patient needs one on one care with his depression. Reports that patient is not getting the correct medication. Went over home medication list on the phone compared to discharge orders from CCU. Will update med rec list as needed. Asked if she could come take patient home this evening. Educated patient's that patient would be leaving AMA if he left this shift which would mean he would not have any prescriptions or recommendations for mental health follow up. Encouraged patient's to allow him to stay for the night and discuss concerns with MD, social media intern and unit nurse senior facilities manager in the AM. Notified patient's that he would be able to see social media intern and MD 1:1 to discuss mental health needs. car worker helper would be able to set up discharge counseling and/or outpatient mental health follow up needs. Patient's did state that she doesn't feel the antidepressant he is currently on, Venlafaxine, is treating his depression well enough. Notified patient that the MD would look at medication regimen tomorrow as well. Patient is reporting to that "everyone here is crazy and I'm not crazy". Will notify appropriate parties to call patient's in the AM as soon as possible.
[2019-06-26] MEDS ORDERED: TOPROL XL50 MG PO (02:19)
[2019-06-26] MEDS ORDERED: EFFEXOR XR150 MG PO (02:20)
[2019-06-26] MEDS ORDERED: GLIMEPIRIDE1 MG PO (02:21)
[2019-06-26] MEDS ORDERED: LUMIGAN2.5 M1 OPHTHALMIC (02:22)
[2019-06-26] MEDS ORDERED: FELODIPINE ER2.5 MG PO (02:23)
[2019-06-26 07:35] VITALS: BP 144/93
--- NOTE | 2019-06-26 11:28 | NUR ---
SW met with pt to complete the intake assessment and TP. This also incldued d/c planning. SW also met with pt and his spouse later and discussed PHP at [facility] and the importance of intense outpt treatment. Both seemed to be in agreement.
--- NOTE | 2019-06-26 11:58 | NUR ---
Pt's pharmacy is [facility] on [address] and Count includes the [facility].
[2019-06-26 20:00] VITALS: BP 115/71
--- NOTE | 2019-06-26 20:00 | NUR ---
Up ambulating with walker t/o unit with steady gait. Conversive with and roommate. States he is tired but denies pain. Looking forward to outpatient treatment. Denies SI/HI. Alert and orientated X 4. Breath sounds clear t/o. Reg HR auscultated. Color pink with brisk capillary refill and palpable peripheral pulses. Voiding independently. Active bowel sounds over soft, rounded abdomen. Compliant with meds and cares.
[2019-06-26 20:19] VITALS: BP 115/71
--- NOTE | 2019-06-27 04:59 | NUR ---
ASSUMED CARE OF PT AT 1915HRS. PT IS ALERT AND ORIENTED X3. FALL PRECAUTION IN PLACE. PT DENIED SI/HI, PAIN, NAUSEA OR SOA. PT PUT ON CPAP FOR HS. PT ABLE TO TAKE PILLS WHOLE. PT SLEPT MOST OF THE SHIFT. VSS AND NO S/S OF ACUTE DISTRESS. WILL CONTINUE TO MONITOR.
[2019-06-27 08:59] VITALS: BP 147/85
--- NOTE | 2019-06-27 14:52 | NUR ---
Pt's Alis stopped SW and asked her what PHP programs are. SW gave her an explanation, and both Alis and pt decided that was not the best option for pt as he does not like group therapy; he would prefer one-on-one therapy. MELIDA provided an update to pt's psych doctor who asked her to link pt with the psychiatrist Adan Lewis in [place]. MELIDA contacted this psych doctor at . No answer. Lft msg. MELIDA also emailed a list of counselors that are covered by pt's insurance to the email his provided of [email or web address]. She also informed pt's that pt's psych doctor would prefer he stay until Tuesday due to the med change. She said ok she will talk things over with pt. SW team will continue to follow pt during his stay on this unit.
--- NOTE | 2019-06-27 17:05 | NUR ---
0700 ASSUMED CARE OF PATIENT. 0800 PATIENT IN DAYROOM FOR BREAKFAST. 0820 PATIENT EATING BREAKFAST DENIES NEEDS, NO C/O PAIN. MEDS TAKEN WHOLE WITH H20. DENIES SI/HI/AH/VH. PATIENT IS CALM AND COOPERATIVE. COMMUNICATES WITH OTHER PATIENTS WELL. WILL CONTINUE TO OBSERVE FOR BEHAVIORS.
[2019-06-27 19:45] VITALS: BP 143/74
[2019-06-27 23:14] VITALS: BP 143/74
--- NOTE | 2019-06-28 04:59 | NUR ---
PATIENT HAS BEEN CALM AND COOPERATIVE TONIGHT. HE HAS STAYED IN HIS ROOM. HE SMILES AND IS KIND. HE DENIES THOUGHTS OF SI/HI. HE IS INDEPENDENT WITH CARES HAS BEEN AMBULATING OFF AND ON WITH WALKER IN HIS ROOM. CLOTHES WERE WASHED AND DRIED TONIGHT. DENIES PAIN. ROUTINE MONITORING. APPEARS TO SLEEPING COMFORTABLY. BED IN LOW POSITION.
--- NOTE | 2019-06-28 11:51 | NUR ---
JENIFER called the therapy group in [place] [phone] and left a VM asking for an appt. eJnifer also called Adan Lewis and left a VM.
--- NOTE | 2019-06-28 12:45 | NUR ---
0730 Sleeping without s/o distress, awakens easily. Alert and orientated X 4, Denies SI/HI, pain. Flat affect. Breath sounds clear t/o, bilaterally equal. Irregular HR auscultated in conjunction with respirations. Color pink with brisk capillary refill and palpable peripheral pulses. +1 nonpitting edema in lower extremities. States he is dizzy when standing up but states that is a vermin exterminator problem. Voiding independently. Active bowel sounds over soft, rounded abdomen. Ambulates to day room with walker without difficulty. 0930 Dr[address] Chavez notified of irregular HR, 12 lead EKG ordered and done. [address] Bhatia assessing pt. Dr. Chavez states he will adjust meds. BG 199, 3 units insulin given SQ per R abdomen. Visiting in day room. No s/o distress.
[2019-06-28 13:16] VITALS: BP 144/86
--- NOTE | 2019-06-28 15:06 | NUR ---
MELIDA clarified that Adan Lewis is a therapist and Sw left a VM seeking services. Dr Johana Metz has agreed to see this pt in her outpt office after d/c. This was also communicated to this pt. Pt will likely d/c tuesday
--- NOTE | 2019-06-28 16:17 | EKG ---
[facility] [place] [address] ELECTROCARDIOGRAM REPORT Name: KIERRA CAMILO Room #: 519- ADM IN M.R.#: [id number] Admission: 06/25/19 Attend Phys: Johana Metz MD Discharge: Date of : 40 Report #: [id number] THIS REPORT FOR: cc: Jb Lainez Theodore M. DO Couchonnal, Luis F. MD ~ THIS REPORT FOR: //name// [facility] Test Date: 2019-06-28 Test Time: 10:06:03 Pat Name: KIERRA CAMILO Department: Room: [facility] Gender: M Nitroglycerin Separator Operator: POOJA : 1940 Requested By: Jose Chavez Order Number: [id number] MD: Juan Muñoz Measurements Intervals [place] Rate: 95 P: 62 ID: 175 QRS: -59 QRSD: 129 T: 152 QT: 364 QTc: 458 Interpretive Statements Sinus rhythm Ventricular premature complex Nonspecific IVCD with LAD Anteroseptal infarct, old Abnrm T, consider ischemia, anterolateral lds Compared to ECG 06/23/2019 10:15:58 T-wave abnormality no longer present Myocardial infarct finding still present Possible ischemia still present Electronically Signed On 06-28-2019 16:16:36 FIBERGLASS GRINDER by Juan Muñoz [email or web address] <ELECTRONICALLY SIGNED> By: Juan Muñoz MD 06/28/19 1616 05 05 Juan Muñoz MD /EPI
[2019-06-28 19:15] VITALS: BP 117/64
--- NOTE | 2019-06-29 00:35 | NUR ---
Care assumed of patient at 1915: Patient sleeping in bed at start of shift. Easily aroused. Calm, pleasant and cooperative. Presents with flat affect, depressed mood. Patient alert and oriented x4. Denies SI/HI/AH/VH. Denies feeling depressed or anxious. No delusional or paranoia behaviors observed. Patient denies any pain or discomfort. Took HS medication whole without difficulty. Ate 50% HS snack. Up with walker to the bathroom. Independent with all ADLs. Gait steady, good balance. RT arrived to set up CPAP machine. Patient declined. Patient has been able to rest quietly thus far this shift.
[2019-06-29 07:00] LABS: ABSOLUTE NEUTROPHILS 5.2 thou/uL (1.4-8.2); BASOPHILS 1.1 % (0.0-2.0); HEMATOCRIT 41.6 % (42.0-52.0); HEMOGLOBIN 14.1 gm/dL (14.0-18.0); LYMPHOCYTES 23.2 % (24.0-44.0); MCH 30.9 pg (26.0-34.0); MCHC 33.8 g/dL (28.0-37.0); MCV 91.2 fL (80.0-100.0); MONOCYTES 9.3 % (1.0-8.0); PLATELET COUNT 225 thou/uL (150-400); POLYS 62.4 % (36.0-66.0); RBC 4.56 mil/uL (4.50-6.00); RDW 14.4 % (10.5-14.5); WBC 8.4 thou/uL (4.0-11.0)
[2019-06-29 07:36] LABS: ALBUMIN 3.7 g/dL (3.4-5.0); CALCIUM 9.5 mg/dL (8.5-10.1); TOTAL BILIRUBIN 0.5 mg/dL (<0.1-1.0)
[2019-06-29 08:42] VITALS: BP 144/86
[2019-06-29 11:00] VITALS: BP 140/82
--- NOTE | 2019-06-29 11:38 | NUR ---
HAS BEEN VISIBLE IN DAYROOM SO FAR THIS SHIFT-SITS QUIETLY IN BACK OF ROOMMAND LITLE NOTED OBSERVED INTERACTION WITH PEER GROUP NOTED. DENIES SI.SH.HI. RESPONSES ARE BREIF AND SLIGHTLY DELAYED BUT R/T TOPIC BEING DISCUSSED, APPETITE FAIR PER PT REPORT WITH MEAL PERCENTGAGES RANGINH FROM 90-75. BLOOD SUGAR AT [id number]-=KO 1100 200-S.S GIVEN PER ORDER. GAIT SLOW AND STEADY WITH USE OF ROLLER WALKER. DENIES C/O PAIN/DISCOMFORT. AFFFECT CONSTRICTED,WITHDRAWN,
[2019-06-29 19:15] VITALS: BP 115/65
--- NOTE | 2019-06-29 23:37 | NUR ---
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 PLEASANT AND COOPERATIVE WITH ASSESSMENT PROCESS AND MEDS. DENIES SI THIS DAY. STATES HE FEELS BETTER NOW THAT HE HAS MORE SUPPORT AROUND HIM. NO C/O. NO APPARENT DISTRESS. WILL CONTINUE TO MONITOR
[2019-06-30 07:38] VITALS: BP 132/73
--- NOTE | 2019-06-30 12:00 | NUR ---
Lying supine in bed without s/o distress. Alert and orientated X4. States he is looking forward to discharge on 07/02 with no stated goals for today. Denies SI/HI. Breath sounds clear t/o, bilaterally equal. Reg HR auscultated. Color pink with brisk capillary refill and palpable peripheral pulses. Independent with voiding. Active bowel sounds over soft, rounded abdomen. Regular, steady gait with walker. Compliant with meds. here visiting this AM.
[2019-06-30 21:00] VITALS: BP 111/69
--- NOTE | 2019-07-01 04:07 | NUR ---
Assumed care of pt @ 1900. Pt calm et cooperative this shift. No behaviors noted. Took medications whole without difficulty. VSWNL. Health assessment with no abnormalities noted at present time. Pt isolated in room most of shift. Pt used CPAP as ordered this shift. Ambulates the halls ad jeffry with steady gait. Denies SI/HI this shift. Currently resting in bed with eyes closed. Will continue to monitor per protocol.
[2019-07-01 07:34] VITALS: BP 137/74
[2019-07-01 10:08] VITALS: BP 137/74
--- NOTE | 2019-07-01 14:00 | NUR ---
1400 RESUMMED CARE FROM OVERNIGTH SHIFT THIS AM, PATIENT QUIET COOPERATIVE IN DAY ROOM. PATIENT ATE BREAKFAST AND TOOK MEDICATION WITHOUT INCIDENCE. PATIENT DENIES ANY SI/HI/ OR AH AT PRESENT. PATIENT PARTICIPATED IN GROUPS AND DOES NOT INTERACT VERY MUCH WITH OTHER PATIENTS. WILL CONTINUE TO MONITOR PATIENT FOR BEHAVIORS AND SAFETY.
--- NOTE | 2019-07-01 17:19 | NUR ---
Ambulating t/o unit with walker without s/o distress, slow, steady gait. When asked if he had any concerns he stated that he was aggravated with one particular peer but other than that he was anxious to go home. Denies SI/HI. Orientated to person, place and situation. Breath sounds clear t/o, bilaterally equal. Reg HR auscultated. Color pink with brisk capillary refill and palpable peripheral pulses. Minimal edema in lower extremities. Voiding independently. Active bowel sounds over soft, rounded abdomen. Sitting at table eating dinner and visiting with . No s/o distress.
[2019-07-01 20:16] VITALS: BP 110/59
--- NOTE | 2019-07-02 05:14 | NUR ---
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 HAS ISOLATED TO ROOM MUCH OF EVENING. PLEASANT AND COOPERATIVE WITH ASSSESSMENT PROCESS AND MEDS. AFFECT BLUNTED, BRIGHTENING ON APPROACH.NO APPARENT DISTRESS. NO C/O. WILL CONTINUE TO MONITOR
[2019-07-02 08:38] VITALS: BP 139/78
--- NOTE | 2019-07-02 08:40 | NUR ---
SW completed d/c instructions. Pt will complete own appt with [facility] Adan Lewis [phone] Metz [phone].
[2019-07-02 08:43] VITALS: BP 139/78
[2019-07-02] MEDS ORDERED: PLAVIX 75 MG TA75 M1 PO (09:34)
[2019-07-02] MEDS ORDERED: METOPROLOL SUCC50 MG PO (09:34)
[2019-07-02] MEDS ORDERED: CYMBALTA60 MG PO (09:34)
--- NOTE | 2019-07-02 10:59 | NUR ---
0715 ASSUMED CARE OF PATIENT. PATIENT SITTING IN DAYROOM QUIETLY. 0820 PATIENT FINISHED EATING BREAKFAST. MEDS TAKEN WHOLE WITHOUT DIFFICULTY. NO C/O PAIN, DENIES SI/HI/AH/VH, PATIENT CALM WITH FLAT AFFECT. DOES STATE BEING HAPPY TO BE GOING HOME TODAY. PATIENT GOAL-GET GONE, PATIENT CONCERN- NONE. PATIENT TO ROOM TO REST. DC INSTRUCTIONS GIVEN PATIENT VOICED UNDERSTANDING WILL DISCUSS INSTRUCTIONS WITH WHEN PRESENT PER PATIENT REQUEST. AFTER INSTRUCTIONS GIVEN PATIENT VOMITED ON FLOOR, STATES "IM JUST EXCITED TO BE LEAVING, JUST MY NERVES". PATIENT SAYS HE IS FEELING BETTER AND REFUSED NAUSEA MEDICATION AT THIS TIME.
--- NOTE | 2019-07-02 12:15 | NUR ---
1145 PATIENTS HERE AT THIS TIME RECRUITING TEAM LEAD SAT WITH BOTH OF THEM TO REVIEW DC INSTRUCTIONS. PATIENTS PERSONAL EYE DROPS GIVEN TO . QUESTIONS ANSWERED AND VOICED UNDERSTANDING. PT DC AT 1205 VIA WC ACCOMPANIED BY RECRUITING TEAM LEAD AND TO VEHICLE.
[2019-07-04 16:31] VITALS: BP 139/78
== END 2019-07-02 12:37 | disposition home or self-care (01) | DRG 885 ==
LOC: SBH 15:08
PROVIDERS: Psychiatry & Neurology Psychiatry; ADMIT Psychiatry & Neurology Psychiatry
DX: F33.2 Major depressive disorder, recurrent severe without psychotic features (principal); G92 Toxic encephalopathy; I25.10 Atherosclerotic heart disease of native coronary artery without angina pectoris; Z95.5 Presence of coronary angioplasty implant and graft; Z95.1 Presence of aortocoronary bypass graft; G20 Parkinson's disease; E78.5 Hyperlipidemia, unspecified; I10 Essential (primary) hypertension; E11.42 Type 2 diabetes mellitus with diabetic polyneuropathy; I25.5 Ischemic cardiomyopathy; E11.51 Type 2 diabetes mellitus with diabetic peripheral angiopathy without gangrene; G47.33 Obstructive sleep apnea (adult) (pediatric); F02.80 Dementia in other diseases classified elsewhere, unspecified severity, without behavioral disturbance, psychotic disturbance, mood disturbance, and anxiety; Z86.73 Personal history of transient ischemic attack (TIA), and cerebral infarction without residual deficits; Z98.49 Cataract extraction status, unspecified eye; Z87.891 Personal history of nicotine dependence; Z88.8 Allergy status to other drugs, medicaments and biological substances; Z79.899 Other long term (current) drug therapy; Z79.84 Long term (current) use of oral hypoglycemic drugs; Z79.82 Long term (current) use of aspirin; Z87.11 Personal history of peptic ulcer disease; T65.92XA Toxic effect of unspecified substance, intentional self-harm, initial encounter
CPT/HCPCS: 10880

== ENCOUNTER → 2019-10-10 | Outpatient (CLI) | payer OTHER, BC ==
[~2019-10-10] MED LIST changes: +CYMBALTA60 MG PO; +EFFEXOR XR150 MG PO; +FELODIPINE ER2.5 MG PO; +LUMIGAN2.5 M1 OPHTHALMIC; +METOPROLOL SUCC50 MG PO; +PLAVIX 75 MG TA75 M1 PO
== END ==
LOC: SJCVC 10:44
DX: R94.31 Abnormal electrocardiogram [ECG] [EKG] (principal); I25.810 Atherosclerosis of coronary artery bypass graft(s) without angina pectoris; I10 Essential (primary) hypertension; E78.00 Pure hypercholesterolemia, unspecified; E78.5 Hyperlipidemia, unspecified; Z95.1 Presence of aortocoronary bypass graft; Z86.73 Personal history of transient ischemic attack (TIA), and cerebral infarction without residual deficits; Z87.891 Personal history of nicotine dependence; Z79.899 Other long term (current) drug therapy

== ENCOUNTER 2020-01-08 13:54 | Emergency (ER) | payer OTHER, BC ==
[~2020-01-08] VITALS: Ht 175.3 cm; Wt 88.5 kg
[2020-01-08 15:07] LABS: ABSOLUTE NEUTROPHILS 5.7 thou/uL (1.4-8.2); BASOPHILS 0.9 % (0.0-2.0); EOSINOPHILS 3.7 % (0.0-3.0); HEMATOCRIT 37.8 % (42.0-52.0); HEMOGLOBIN 12.7 gm/dL (14.0-18.0); LYMPHOCYTES 19.4 % (24.0-44.0); MCH 30.3 pg (26.0-34.0); MCHC 33.7 g/dL (28.0-37.0); MCV 90.1 fL (80.0-100.0); MONOCYTES 6.8 % (1.0-8.0); PLATELET COUNT 225 thou/uL (150-400); POLYS 69.2 % (36.0-66.0); RDW 14.8 % (10.5-14.5); WBC 8.2 thou/uL (4.0-11.0)
[2020-01-08 15:12] LABS: URINE BILIRUBIN 1+ (Negative); URINE BLOOD NEGATIVE (Negative); URINE CLARITY CLEAR; URINE COLOR YELLOW; URINE GLUCOSE-RANDOM* NEGATIVE (Negative); URINE KETONES NEGATIVE (Negative); URINE LEUKOCYTES-REFLEX NEGATIVE (Negative); URINE NITRITE-REFLEX NEGATIVE (Negative); URINE PROTEIN (DIPSTICK) NEGATIVE (Negative); URINE SPECIFIC GRAVITY >= 1.030 (1.005-1.035)
[2020-01-08 15:13] LABS: ICTOTEST (BILI CONFIRMATORY) Negative (Negative)
[2020-01-08 15:16] LABS: CALCIUM 9.7 mg/dL (8.5-10.1); CREATININE 1.3 mg/dL (0.7-1.3); POTASSIUM 3.9 mmol/L (3.5-5.1)
[2020-01-08 15:18] LABS: INR 1.1; PROTIME 10.9 Seconds (9.3-11.4)
[2020-01-08 15:27] LABS: ALBUMIN 3.9 g/dL (3.4-5.0); TOTAL BILIRUBIN 0.5 mg/dL (0.2-1.0); TOTAL PROTEIN 7.1 g/dL (6.4-8.2); TROPONIN-I 0.09 ng/mL (<0.06)
[2020-01-08 16:55] VITALS: BP 140/67
--- NOTE | 2020-01-09 08:20 | EKG ---
[facility] [address] [place] [address] ELECTROCARDIOGRAM REPORT Name: TONKIERRA D Room #: DEP [facility]#: [id number] Admission: 01/08/20 Attend Phys: Discharge: 01/08/20 Date of : 40 Report #: [id number] THIS REPORT FOR: cc: Jb Lainez Theodore M. DO Lundgren, Craig H. 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: [facility] : 1940 Requested By: Man Barrett Order Number: [id number] MD: Kishan Naik Measurements Intervals [place] Rate: 73 P: -20 NV: 209 QRS: -40 QRSD: 124 T: 171 QT: 423 QTc: 467 Interpretive Statements Sinus rhythm Atrial premature complex Nonspecific intraventricular conduction delay Nonspecific ST and T wave abnormality Compared to ECG 06/28/2019 10:06:03 Atrial premature complex(es) now present ST and T wave abnormality is less pronounced Ventricular premature complex(es) no longer present Electronically Signed On 01-09-2020 8:19:52 CDT by Kishan Naik [email or web address] <ELECTRONICALLY SIGNED> By: Kishan Naik MD, [facility] 01/09/20818 13 141 Kishan Naik MD, [facility] /EPI
== END 2020-01-08 17:00 | disposition home or self-care (01) ==
LOC: ER 13:54
PROVIDERS: Physician Assistant
DX: S06.0X0A Concussion without loss of consciousness, initial encounter (principal); M25.512 Pain in left shoulder; M54.2 Cervicalgia; M54.5 Low back pain; Z79.01 Long term (current) use of anticoagulants; Z79.82 Long term (current) use of aspirin; Z79.899 Other long term (current) drug therapy; Z88.8 Allergy status to other drugs, medicaments and biological substances; W05.0XXA Fall from non-moving wheelchair, initial encounter; Y93.89 Activity, other specified; Y92.89 Other specified places as the place of occurrence of the external cause; Y99.8 Other external cause status

== ENCOUNTER 2020-01-19 02:41 | Emergency (ER) | payer OTHER, BC ==
[~2020-01-19] VITALS: Ht 175.3 cm; Wt 87.5 kg
[2020-01-19 03:03] LABS: ABSOLUTE NEUTROPHILS 2.9 thou/uL (1.4-8.2); BASOPHILS 1.2 % (0.0-2.0); EOSINOPHILS 4.3 % (0.0-3.0); HEMATOCRIT 39.1 % (42.0-52.0); HEMOGLOBIN 13.4 gm/dL (14.0-18.0); LYMPHOCYTES 43.6 % (24.0-44.0); MCH 30.7 pg (26.0-34.0); MCHC 34.4 g/dL (28.0-37.0); MCV 89.4 fL (80.0-100.0); MONOCYTES 9.8 % (1.0-8.0); PLATELET COUNT 209 thou/uL (150-400); POLYS 41.1 % (36.0-66.0); RBC 4.37 mil/uL (4.50-6.00); RDW 14.9 % (10.5-14.5)
[2020-01-19 03:10] LABS: CALCIUM 9.1 mg/dL (8.5-10.1); CREATININE 1.1 mg/dL (0.7-1.3); POTASSIUM 3.5 mmol/L (3.5-5.1)
[2020-01-19 03:11] LABS: APTT 28.5 Seconds (24.5-32.8); PROTIME 10.5 Seconds (9.3-11.4)
[2020-01-19 03:16] LABS: SALICYLATE < 2.8 mg/dL (2.8-20.0)
[2020-01-19 03:20] LABS: ALBUMIN 3.8 g/dL (3.4-5.0); TOTAL BILIRUBIN 0.3 mg/dL (0.2-1.0); TOTAL PROTEIN 6.9 g/dL (6.4-8.2); TROPONIN-I 0.1 ng/mL (<0.06)
[2020-01-19] MEDS ORDERED: PRAZOSIN 1 MG CA1 M1 PO (03:34)
[2020-01-19 04:32] LABS: URINE BILIRUBIN NEGATIVE (Negative); URINE BLOOD TRACE (Negative); URINE CLARITY CLEAR; URINE COLOR YELLOW; URINE GLUCOSE-RANDOM* 1+ (Negative); URINE KETONES NEGATIVE (Negative); URINE LEUKOCYTES-REFLEX TRACE (Negative); URINE NITRITE-REFLEX NEGATIVE (Negative); URINE PROTEIN (DIPSTICK) NEGATIVE (Negative); URINE SPECIFIC GRAVITY 1.025 (1.005-1.035); URINE UROBILINOGEN 0.2 E.U./dl (0.2-1.0)
[2020-01-19 05:19] LABS: AMP/METHAMP Negative (Negative); BARBITURATES Negative (Negative); BENZODIAZEPINES Negative (Negative); COCAINE Negative (Negative); METHADONE Negative (Negative); OPIATES Negative (Negative); PCP Negative (Negative)
[2020-01-19 05:37] VITALS: BP 159/64
--- NOTE | 2020-01-19 11:45 | EKG ---
[facility] [place] [address] ELECTROCARDIOGRAM REPORT Name: KIERRA CAMILO [id number] Admission: 01/19/20 Attend Phys: Discharge: 01/19/20 Date of : 40 Report #: [id number] THIS REPORT FOR: cc: Jb Lainez Theodore M. DO Lundgren, Craig H. 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: : 1940 Requested By: Jayme Flowers Order Number: [id number] MD: Kishan Naik Measurements Intervals [place] Rate: 78 P: 49 [place]: 194 QRS: -46 QRSD: 124 T: 266 QT: 444 QTc: 506 Interpretive Statements Sinus rhythm Paired ventricular premature complexes Nonspecific IVCD Anteroseptal infarct, old Nonspecific T abnormalities, inferior leads Compared to ECG 01/08/2020 14:14:22 Ventricular premature complex(es) now present Electronically Signed On 01-19-2020 11:44:50 CDT by Kishan Naik [email or web address] <ELECTRONICALLY SIGNED> By: Kishan Naik MD, [facility] 01/19/20 1144 0254 0254 Kishan Naik MD, FAC /EPI
== END 2020-01-19 05:45 | disposition home or self-care (01) ==
LOC: ER 02:41
PROVIDERS: Emergency Medicine
DX: R53.1 Weakness (principal); Z79.899 Other long term (current) drug therapy; Z88.8 Allergy status to other drugs, medicaments and biological substances; Z79.01 Long term (current) use of anticoagulants

== ENCOUNTER 2020-01-26 16:33 | Inpatient (IN) | payer OTHER, BC ==
[~2020-01-26] VITALS: Ht 175.3 cm; Wt 88.5 kg
[~2020-01-26 16:33] MED LIST changes: +PRAZOSIN 1 MG CA1 M1 PO
[2020-01-26 16:40] VITALS: BP 114/90
[2020-01-26 17:19] LABS: URINE BILIRUBIN NEGATIVE (Negative); URINE BLOOD NEGATIVE (Negative); URINE CLARITY CLEAR; URINE COLOR YELLOW; URINE GLUCOSE-RANDOM* TRACE (Negative); URINE KETONES NEGATIVE (Negative); URINE LEUKOCYTES-REFLEX TRACE (Negative); URINE NITRITE-REFLEX NEGATIVE (Negative); URINE PROTEIN (DIPSTICK) NEGATIVE (Negative); URINE SPECIFIC GRAVITY >= 1.030 (1.005-1.035)
[2020-01-26 17:20] LABS: AMP/METHAMP Negative (Negative); BARBITURATES Negative (Negative); BENZODIAZEPINES Negative (Negative); COCAINE Negative (Negative); METHADONE Negative (Negative); OPIATES Negative (Negative); PCP Negative (Negative)
[2020-01-26 17:42] LABS: WBC 5.9 thou/uL (4.0-11.0)
[2020-01-26 17:43] LABS: ABSOLUTE NEUTROPHILS 3.1 thou/uL (1.4-8.2); BASOPHILS 1.4 % (0.0-2.0); EOSINOPHILS 5.7 % (0.0-3.0); HEMATOCRIT 37.5 % (42.0-52.0); HEMOGLOBIN 12.9 gm/dL (14.0-18.0); LYMPHOCYTES 29.3 % (24.0-44.0); MCH 30.7 pg (26.0-34.0); MCHC 34.3 g/dL (28.0-37.0); MCV 89.5 fL (80.0-100.0); MONOCYTES 11.4 % (1.0-8.0); PLATELET COUNT 212 thou/uL (150-400); POLYS 52.2 % (36.0-66.0); RBC 4.19 mil/uL (4.50-6.00); RDW 15.2 % (10.5-14.5)
[2020-01-26 17:51] LABS: CALCIUM 9.2 mg/dL (8.5-10.1); CREATININE 1.1 mg/dL (0.7-1.3)
[2020-01-26 17:56] LABS: ALBUMIN 3.6 g/dL (3.4-5.0); TOTAL BILIRUBIN 0.2 mg/dL (0.2-1.0); TOTAL PROTEIN 6.9 g/dL (6.4-8.2)
[2020-01-27] MEDS ORDERED: UROXATRAL PO (07:10)
[2020-01-27] MEDS ORDERED: ARICEPT10 M1 PO (07:11)
[2020-01-27 11:23] VITALS: BP 158/80
--- NOTE | 2020-01-27 15:18 | NUR ---
ADMITTED FROM THE EMERGENCY ROOM VIA WHEELCHAIR. ALERT AND ORIENTED X4. PATIENT STATES "I HAVE BEEN HERE BEFORE, I KNOW THE ROUTINE." ADMITTED FOR CONFUSION AND BECOMING AGGRESSIVE WITH . PATIENT STATES ALMOST LIKE DESCRIBING A DREAM THAT HE HAS A MINIATURE WHEELCHAIR AT HOME AND PER HIS HE WAS ON HIS WAY TO [place]. PATIENT STATES HE WAS SITTING ON THE SIDEWALK AND HAS BEEN HAVING ERRATIC BEHAVIOR. PATIENT STATES HE FELL BACKWARDS A WEEK AGO AND HIT HIS HEAD. PATIENT STATES HE STILL FEELS LIKE HE HAS A CONCUSSION. SAYS HE HAD A HEADACHE LAST NIGHT. STATES HE TRIED TO COMMIT SUICIDE THREE TIMES IN THE PAST. STATES HE PROMISED HIS HE WOULD NOT ATTEMPT AGAIN. DENIES SI/HI AND AVH. STATES HAS MID BACK PAIN MORE ON RIGHT SIDE THAT IS A CHRONIC ISSUE. SAYS FEELS SAFE AT HOME. IS INDEPENDENT WITH ADLS. SAYS NEEDS ASSISTANCE IN THE SHOWER. ON FALL PRECAUTIONS. IS A HIGH FALL RISK. BRAND SCORE AT 70. AMBULATING WITH A WALKER. SITTING UP IN CHAIR IN THE DINING ROOM INTERACTING WITH PEERS AND WATCHING TV INTERMITTENTLY. VITAL SIGNS AT 159/80, 100 16 98 AND PULSE OXIMETRY AT 99%. OTHER MEDICAL ISSUES INCLUDE PARKINSONS, DIABETES, HYPERTENSION AND ATRIAL FIBRILLATION. TAKING PO MEDICATIONS WELL. MEDICATION ADHERENT. GAIT STEADY. INDEPENDENT WITH TOILETING. GOOD APPETITE.
--- NOTE | 2020-01-27 16:13 | NUR ---
SW was able to complete the assessment with the Pt. Pt presented confused and forgetful but was able to answer questions. SW was able to talk to the Pt's , Kathy. Kathy stated that she is the DPOA and will email a copy of the document to the SW. Kathy stated that the Pt attempted suicide in Jun 2019. The Pt was took tramadol and wrote a note. Pt did suffer a sizure after this attempt. Pt was hosiptalized after this attempt here at [facility]. Kathy also reported the Pt recently lost his daughter in Mar 2019 and his son in 2013. Kathy also reported that thier son (Pt's stepson) has moved back in the home. Kathy stated the move in has caused some stress in the household. Kathy reports that the Pt has made suicidal threats stating he doesn't want to be here. Pt does recieve out Pt theraputic and psychiatric services. Pt sees Jenifer Brown every 2 to 3 weeks for therapy. Pt sees Dr. Medardo Sanchez for Psychiatry.
[2020-01-27 16:41] VITALS: BP 159/80
[2020-01-27 19:33] VITALS: BP 118/76
--- NOTE | 2020-01-28 02:12 | NUR ---
ASSUMED PT CARE AROUND 1930. ALERT AND ORIENTED. NO AGITATION OR ABNORMAL BEHAVIOR NOTED AT THIS TIME. CPAP FROM HOME APPLIED AND SITTER AT BEDSIDE FOR SAFETY. NO S/S ACUTE DISTRESS NOTED OR REPORTED AT THIS TIME. WILL CONT TO MONITOR FOR ANY CHANGES IN CONDITION.
[2020-01-28 06:12] VITALS: BP 135/75
[2020-01-28 07:35] VITALS: BP 120/70
[2020-01-28 08:00] VITALS: BP 120/70
--- NOTE | 2020-01-28 08:08 | EKG ---
[facility] [place] [address] [place] [address] ELECTROCARDIOGRAM REPORT Name: KIERRA CAMILO Room #: 52-A ADM IN M.R.#: [id number] Admission: 01/27/20 Attend Phys: Ehsan Bhatia DO Discharge: Date of : 40 Report #: [id number] THIS REPORT FOR: cc: Jb Lainez Theodore M. DO Couchonnal, Luis F. 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
--- NOTE | 2020-01-28 08:20 | NUR ---
PT OUT TO DINING ROOM EATING BREAKFAST. PT TAKING MEDS WITHOUT ANY ISSUES. PT DID SAY HE HAS ISSUES WITH DIZZINESS AT TIMES. PT KNOWS TO WAIT A FEW MINUTES WHEN GETTING UP. PT STATED HE IS HAVING THE DIZZINESS MORE FREQUENTLY. LUNGS CLEAR. HEART IN REGULAR RHYTHM. PT USES WALKER FAITHFULY.
--- NOTE | 2020-01-28 14:45 | NUR ---
PT TOLD TODAY HE HAS DEMENTIA. PT STARTED TO CRY AND IS TALKING ON THE PHONE. 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
[2020-01-28 17:00] VITALS: BP 153/72
[2020-01-28 19:27] VITALS: BP 142/72
[2020-01-28 22:13] VITALS: BP 142/72
--- NOTE | 2020-01-29 02:21 | NUR ---
Assumed care of patient this pm shift. Patient sitting in mileu during assessment. Patient denies pain. Patient denies hi/si. Patient calm and cooperative, euthymic affect. Patient ambulates with a walker and is considered a falls risk. Patient is alert and oriented x4. Patient is medication adherent and takes medications whole with thin fluids. Patients assessment shows no signs of acute distress. CPAP set up by RN this evening. We will continue to monitor per hospital policy.
[2020-01-29 07:34] VITALS: BP 129/67
--- NOTE | 2020-01-29 10:00 | NUR ---
Assumed care 0700. Allowed to sleep per request. Self fed breakfast. Took meds without difficulty. Attending groups offered. No voiced complaints of pain. Injects a sense of humor in conversation. NO SI/HI/AH/VH.
--- NOTE | 2020-01-29 17:00 | NUR ---
Patient compliant with medications. Blood Pressure before Vfenkcxxd=746/80, manually, p=80. No voiced concerns. Pleasant, no AH/VH. conversant with peers.
[2020-01-29 19:21] VITALS: BP 159/74
[2020-01-29 21:44] VITALS: BP 159/74
--- NOTE | 2020-01-30 03:00 | NUR ---
Assumed care of patient this pm shift. Patient in good spirits sitting in the mileu with other peers. Patient denies hi/si. Patient is alert and oriented x4. Patients affect is euthymic. Patient is medication adherent, takes meds whole with thin fluids. Patient is considered a falls risk and has on a yellow shirt. Patient ambulates with a walker. Patient is continent of bowel and bladder. Patients assessment shows no signs of acute distress. We will continue to monitor per hospital policy.
--- NOTE | 2020-01-30 08:23 | NUR ---
PT IN DINING ROOM. PT TAKING MEDS WITHOUT ANY ISSUES. PT STATED HE HAS SOME GENERALIZED PAIN OF 5 ON 1-10 SCALE. PT DID HAVE A TYLENOL EARLY THIS AM THAT DIDN'T HELP. PT CHEERFUL WITH STAFF AND OTHER PEERS.
[2020-01-30 08:40] VITALS: BP 118/69
[2020-01-30 08:58] VITALS: BP 118/69
--- NOTE | 2020-01-30 14:24 | NUR ---
ADM IBUPROPHEN 600MG PO FOR PAIN TO LOWER BACK OF 8 ON 1-10 SCALE ON RT SIDE. PT STATED HE THINKS ITS HIS BED SINCE HE DIDN'T HAVE THIS BEFORE.
--- NOTE | 2020-01-30 15:05 | NUR ---
Very tearful in this afternoon's 1300 recreation group. Patient made some amount of hopeless statements- I don't enjoy life much, Not much to live for.. He was observed smiling and then crying while sharing stories of growing up with farm animals, in [place], or without electricity or water. Nurse notified of increased tearfulness and statements.
--- NOTE | 2020-01-30 18:57 | NUR ---
PT HAS BEEN SAD ON AND OFF TODAY. PT TOLD REC THERAPY THAT HE DIDN'T SEE WHAT WORTH HE WAS AND DIDN'T KNOW WHAT ELSE WE COULD DO FOR HIM. PT ASKING THE NURSE RIGHT NOW IF HE IS STILL TAKING DEPRESSION MEDICATION.
[2020-01-30 19:52] VITALS: BP 155/87
[2020-01-30 23:32] VITALS: BP 155/87
--- NOTE | 2020-01-30 23:49 | NUR ---
Assumed care on 01/30/20 @ 19:30, ambulating with walker and sitting in the mileu socializing with peers. Asking if he is still on antidepressants. Says they are not working, did we give him a placebo? Education provided as to gradual improvement to be expected to medication and the benefit of working on his issues in therapy groups. Acknowledged understanding, reported back pain of 5/10, Tylenol 650 provided, takes meds whole with thin water. AA&Ox4 calm and cooperative. Reports last bm yesterday (01/29/20), ABD Nx 4Q, HRRR, Lungs CTA bilat. Reports that daughter passed in Jun this year, and son passed in 2013. Reports that hearing peers discuss their personal losses causes him to feel tearful. Retired to bed when the TV was turned off @ 2200. Toilets independently, able to put his CPAP on and only needed it to be provided and plugged in. Will continue to monitor as per unit protocol for for patient safety and comfort. Bed in low position, bed alarm set. a
[2020-01-31 07:32] VITALS: BP 121/72
--- NOTE | 2020-01-31 09:12 | NUR ---
PLEASANT AND COOPERATIVE -VISIBLE IN DAYROOM AND INTERACTING WITH PEERS. FULL RANGE AFFECT. GAIT STEADY WITH USE OF ROLLER WALKER. DOES REPORT CHRONIC NECK/BACK PAIN IS "ACTING UP" TODAY-IBUPROFEN 600MG GIVEN PO PRN AT 0900. APPETITE GOOD. REPORTS MOOD "PRETTY GOOD-I JUST FEEL TIRED LIKE I DON'T HAVE ANY ENERGY"
[2020-01-31 19:23] VITALS: BP 145/60
--- NOTE | 2020-02-01 04:06 | NUR ---
Assumed pt's care this pm shift. Pt was sitting among peers at time of assessment. Pt was had a calm and happy affect. Pt ambulates with walker. Took meds whole without issues. Pt sleeping in his room at this time. No complaints noted. Will continue to monitor.
[2020-02-01 06:14] VITALS: BP 114/64
[2020-02-01 07:51] VITALS: BP 126/86
--- NOTE | 2020-02-01 08:29 | NUR ---
RT Progress Note- Since his admission, Jimmy has been an active participant in both the milieu and all recreation therapy groups. Jimmy has created a group of friends on the unit who he spends his free time seeking support in. He is interactive in groups though frequently tearful r/t his recent dementia diagnosis. He expresses a level of depression and feeling that he doesn't enjoy life in general. RT staff will continue to encourage Jimmy's participation in groups and socialization in the milieu to improve coping skills.
--- NOTE | 2020-02-01 09:57 | NUR ---
Assumed care 0700. Pleasant, compliant with meds. Self fed breakfast. c/o hands not working quite right yet this AM. Conversant with peers. Mood is good/upbeat. No voiced complaints/concerns.
--- NOTE | 2020-02-01 14:37 | NUR ---
@ [address] Howell had a meet with the Pt and his , . Diagnosis and treatment was discussed. Dr. Howell is recommending assisted living for the Pt or 24 hour care in the home. Kathy wants the Pt to return home and is willing to provide in home care for the Pt. MELIDA will provide agencies listing to the family. Pt will be discharge home 02/05/2020. The family will transport
--- NOTE | 2020-02-01 15:06 | NUR ---
MELIDA emailed a listing of Home health aide companies to Kathy at [email or web address]
--- NOTE | 2020-02-01 17:00 | NUR ---
No SI/HI/AH/VH. After lunch today with a therapist had some dizziness and vomiting-small amount. When offered Zofran med he declined, was eating lunch fine without difficulty. Uses walker with steady gait, is alert and oriented x 4-does not need chair alarm in the day time. Pleasant, upbeat mood, compliant with medications and milieu routine, attending/participating in groups.
[2020-02-01 19:34] VITALS: BP 129/78
--- NOTE | 2020-02-01 23:12 | NUR ---
ASSUMED CAEE OF PT AT 1900HRS. ASSESSMENT CHARTED. PT WAS CALM AND COOPERATIVE THIS SHIFT. PT TOOK ALL HS MEDS WHOLE WITH WATER. PT USES CPAP AT HS. VSS AND NO S/S OF ACUTE DISTRESS. PT REPORTED OFF TO DIFFERENT RN AT 2330HRS.
--- NOTE | 2020-02-02 04:32 | NUR ---
ASSUMED PT CARE AT AROUND 2330HRS. PT OBSERVED RESTING QUIETLY, CPAP IN PLACE.HE GOT UP AROUND 0330 HRS AND WALKED TO THE DAY AREA. PT WAS DRESSED AND SAID HE THOUGHT IT WAS ALREADY MORNING. PT HOWEVER WAS ABLE TO GO BACK TO SLEEP WITH NO ISSUES ONCE DISCOVERING WHAT TIME IT WAS.HE IS NOW OBSERVED QUIETLY SLEEPING. NO FURTHER CONCERNS.
[2020-02-02 06:00] VITALS: BP 125/73
[2020-02-02 08:00] VITALS: BP 128/64
--- NOTE | 2020-02-02 08:27 | NUR ---
PT SITTING IN DINING ROOM. PT TOOK MEDS WITHOUT ANY ISSUES. PT STATED PAIN TO BACK IS ABOUT CHCF OF A 5 ON 1-10 SCALE. PT LUNGS CLEAR. PT UP WITH WALKER WITH STEADY GAIT. PT HAD BM YESTERDAY AND A SHOWER.
--- NOTE | 2020-02-02 11:55 | H ---
[facility] [place] [address] HISTORY AND PHYSICAL Name: KIERRA CAMILO Room #: 521A-A ADM IN M.R.#: [id number] Admission: 01/27/20 Attend Phys: Ehsan Bhatia DO Discharge: Date of : 40 Report #: [id number] THIS REPORT FOR: cc: Jb Lainez,Jb Oviedo,Ehsan Spain DO ~ CC: Ehsan Lainez DATE OF SERVICE: 01/27/2020 INPATIENT PSYCHIATRIC EVALUATION ATTENDING PSYCHIATRIST: Ehsan Bhatia DO REVENUE STAMPER: Rambo Wen MD REASON FOR ADMISSION: The patient was referred from the Emergency Room here at [place] for wandering away, making vague threats, increased confusion, threats to his . HISTORY OF PRESENT ILLNESS: This is a 79-year-old male who was hospitalized in 06/2019 right before the COVID epidemic on 3 different circumstances that time, it was an intentional overdose, suicide attempt on one of the pain medication, and major depressive disorder diagnosis. At this time; however, concerns are of a different nature with the patient eloping on scooter from his home, easily agitated, having progressive memory difficulties over the ensuing 6-7 months or so. The patient told the Emergency Room, he did not know why he was here. He denied pain. His reports that he has been more forgetful and irrational, states that this is progressively worsening. Aside from the above described suicide attempt, he will make statements like "if things do not change, I'm going to shoot myself." She reports that he has been under a lot of stress and may become angry today. He took off on a scooter and was found at a gas station in an hour and a half later several miles from his home. He reported that he was going to [place] to see his sister. reports that she keeps the gun in their home locked up, but she is concerned over this worsening irrational behavior. He does have a history of formal Parkinson's disease diagnosed by Dr. Gracia at an outside hospital. He had a brief trial on Sinemet 25/100, but this was stopped after 5 days due to unspecified side effects, history of suicide attempt. Other medical history of note includes transient ischemic attack, elevated troponin, concussion. Evidently, he fell back in his wheelchair about 2 weeks ago. He did have loss of consciousness, shoulder pain. ALLERGIES: DILIP INHIBITORS CAUSES A COUGH. [facility] [address] [place] [address] HISTORY AND PHYSICAL Name: KIERRA CAMILO Room #: 521A-A ADM IN [facility].#: [id number] Admission: 01/27/20 Attend Phys: Ehsan Bhatia DO Discharge: Date of : 40 Report #: [id number] OTHER MEDICAL HISTORY: Heart disease, hypertension. PAST SURGICAL HISTORY: He has had a CABG x 2. He reports 14 stents, carotid endarterectomy, cataract extraction, back surgery. He has had a TURP, cystoscopy. SOCIAL HISTORY: Denies alcohol, tobacco, or recreational drug use history. ADDITIONAL MEDICAL HISTORY: Obstructive sleep apnea on CPAP, peripheral arterial disease, hypothyroidism, ischemic cardiomyopathy with an EF of 40-45%, peripheral neuropathy as well, deconditioning. FAMILY HISTORY: The patient could not recall family members that had dementia or other psychiatric problems. DEVELOPMENTAL HISTORY: Born in a [place] town in [place], [place] in [place] town in [place]. He had an 8-year history in the [employer], honourably discharged. He reports having a bachelor's degree from [employer]. 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 His interestingly is 65 years old, she reports she is about to retire in the next 5-6 months. The patient denies being physically, sexually or emotionally abused. HOME MEDICATIONS: The patient's medication list from home: Cymbalta 60 mg daily, Plavix 75 mg p.o. daily, Aricept 5 mg p.o. daily, alfuzosin 10 mg tablets in the p.m. He sees Dr. Mancini for Urology issues, atorvastatin 80 mg plus an additional half p.o. Tuesday and Tuesday, Lumigan eye drops, finasteride, fenofibrate, levothyroxine, metformin hydrochloride extended release 3 times a day, metoprolol succinate 50 mg daily, midodrine 2.5 mg b.i.d., prazosin 2 mg p.o. daily for nightmares, carbidopa/levodopa no longer taking. He also takes Toviaz which we do not have on formulary and I would not recommend. Also Farxiga that is antidiabetic medication it is similarly does not need in the hospital. He takes vitamin D 2000 IU p.o. daily, multivitamin, aspirin 325 mg p.o. daily. He has had previous antidepressant trial on venlafaxine extended release. His psychiatrist is Dr. Sanchez at [phone] recommended by therapist, Harika Milian. I spoke with Dr. Sanchez today who was diagnosed him with bipolar disorder and dementia. Interestingly, he was just on an antidepressant and mood stabilizer. Dr. Sanchez recommended starting him on Seroquel or Depakote, I want him with Depakote which I will discuss later. VITAL SIGNS: Today, temperature 37.1, pulse 79, respirations 15, blood pressure 120/70, O2 sat 95% on room air. [facility] [address] [address] [place] [address] HISTORY AND PHYSICAL Name: TONKIERRA Yasir Room #: 521A-A [facility] IN ..#: [id number] Admission: 01/27/20 Attend Phys: Ehsan Bhatia, DO Discharge: Date of : 40 Report #: [id number] LABORATORY DATA: From the Emergency Room; H and H 12.9 and 37.5, white count 5.9, platelets 212. Chemistry: Sodium 139, potassium 4.0, chloride 105, bicarbonate 23, anion gap 11, BUN 20, creatinine 1.1, estimated GFR 65, glucose 185, calcium 9.2, total bilirubin 0.2, AST 12, ALT 16, alkaline phosphatase 38, total protein 6.9, albumin 3.6. UDS negative. Alcohol less than 10. Urinalysis showed trace leukocyte esterase and glucose. Electrocardiogram which was read by Dr. Muñoz was remarkable for a borderline first-degree AV block of 203 milliseconds. QT was 447, QTc 451 in sinus rhythm. No recent microbiology. REVIEW OF SYSTEMS: Actually, it was limited, but grossly the patient denied physical complaints, pain, nausea, vomiting, fever, diarrhea or chills. PHYSICAL EXAMINATION: Ambulates with walker, slow gait. Biceps tendon and rest were checked for cogwheeling, which was negative. Tongue was midline. MENTAL STATUS EXAMINATION: This is a well-developed, fairly nourished male, appearing stated age. Attention limited. Concentration limited. Speech is normal in rate, volume and tone. Thought process is linear and goal directed. Denied SI or HI. Denied auditory, visual, or tactile hallucinations. Thought content, focused on his medical condition. Memory formally tested. The patient was given [facility] Mental status examination, he scored 19/30. He was 3 for 5 on delayed recall and 0 for 8 queued memory on paragraph questions. Additionally, he had some trouble with sequencing with reverse digit span, second highest score on verbal fluency. He was oriented and did fine on the working memory question. Insight limited. Judgment limited. Fund of knowledge at least average. FORMULATION: A 79-year-old male brought by to the Emergency Room after elopement incident, progressive memory decline over the last 5-7 months as well as irritability. DIAGNOSES: At this time; major neurocognitive disorder likely Alzheimer's versus possibly vascular with behavioral disturbance, unspecified psychosis likely to the above diagnosis of major neurocognitive disorder. MEDICAL COMORBIDITIES: Numerous including hypertension, coronary artery disease, ischemic heart failure, orthostatic hypotension. PLAN: Evaluate, stabilize, obtain collateral. Regarding medications starting him on Namenda titration as his WA interval is borderline prolonged. I do not think we should increase his omeprazole given the manic features and input from Dr. Sanchez, was started on Depakote ER 750 mg p.o. at bedtime, continue metoprolol succinate 100 mg p.o. daily and hold if pulse less than 60, finasteride 5 mg p.o. daily, fenofibrate 160 mg p.o. daily, Plavix 75 mg p.o. daily, atorvastatin 80 mg p.o. daily, aspirin 325 mg p.o. daily, levothyroxine [facility] [address] [place] [address] HISTORY AND PHYSICAL Name: KIERRA CAMILO Room #: 521A-A ADM IN M.R.#: [id number] Admission: 01/27/20 Attend Phys: Ehsan Bhatia DO Discharge: Date of : 40 Report #: [id number] 50 mcg p.o. daily. The prazosin, I am go ahead and reduce to 1 mg at bedtime instead of 2 mg. We will continue the midodrine 2.5 mg b.i.d. for now, continue metformin 500 mg p.o. b.i.d. with meals, else PRNs. ESTIMATED LENGTH OF STAY: 10-14 days. I did discuss with the the possibility of a nursing facility placement. She wants to see how the next few days go which is understandable in plan. STRENGTHS: He is insured, supportive family. WEAKNESSES: Advanced age, multiple morbidities likely recurrence and progression of a neurodegenerative disorder. Time spent on this case is greater than 60 minutes, greater than 50% of time spent on review of records, coordination of care. <ELECTRONICALLY SIGNED> By: Ehsan Bhatia DO 02/02/20 1155 1554 1640 Ehsan Bhatia DO /nt
--- NOTE | 2020-02-02 16:06 | NUR ---
PT WAS IN GROUP AND FELT LIKE HE COULDN'T KEEP HIS EYES OPEN. PT STATED HE FELT SICK TO STOMACH. CHECKED ON PT AND HE SAT UP ON SIDE OF BED AND VOMITED BILE WITH DIGESTED FOOD, AROUND 150ML. ADM ZOFRAN 4MG PO FOR NAUSEA. WILL CHECK BACK ON PT. PT STATED HE WANTED TO LAY DOWN. GAVE PT A FERNANDO TO CALL FOR HELP IF HE FEELS SICK AGAIN.
[2020-02-02 17:15] VITALS: BP 140/69
--- NOTE | 2020-02-02 17:17 | NUR ---
PT STATED HE FELT BETTER AND IS EATING DINNER.
[2020-02-02 20:18] VITALS: BP 136/93
[2020-02-02 21:33] VITALS: BP 136/93
--- NOTE | 2020-02-03 02:39 | NUR ---
Assumed care of patient this pm shift. Patient in good spirits sitting in the mileu with peers. Patient denies pain. Patient denies hi/si. Patients affect is euthymic. Patients assessment shows no signs of acute distress. Patient is considered a falls risk and has on a yellow shirt. Patient ambulates via walker with a steady gait. Patient takes medications whole and is adherent to the prescribed schedule. CPAP set up by RN. Patient is alert and oriented x4. We will continue to monitor per hospital policy.
[2020-02-03 07:30] VITALS: BP 128/94
[2020-02-03 08:00] VITALS: BP 128/94
--- NOTE | 2020-02-03 08:35 | NUR ---
PT IN ROOM THIS AM GETTING READY TO GO TO DINING ROOM. PT DENIES ANY NAUSEA AT THIS TIME. PT STATED HE GETS GASTRIC ACID BUILD UP AT TIMES. PT STATED HE FEELS PRETTY GOOD. ENCOURAGED PT NOT TO FEEL DOWN DUE TO DIAGNOSIS, HE SAID HE JUST DON'T WANT TO BE SOMEONE THAT DOESN'T KNOW ANYTHING. PT SEES OTHERS THAT ARE WORSE OFF THAN HIM. PT TOOK MEDS WITHOUT ANY ISSUES AND USING WALKER FAITHFULLY.
--- NOTE | 2020-02-03 10:11 | NUR ---
PT STATED HIS PAIN TO RT SIDE OF BACK IS 8 ON 1-10 SCALE. PT STATED IT DEPENDS ON HOW HE MOVES. ADM TYLENOL 325MG 2 TABS PO FOR PAIN.
--- NOTE | 2020-02-03 10:35 | NUR ---
PT COMPLAINING OF NAUSEA. PT RECIEVED ZOFRAN 4MG PO FOR NAUSEA.
--- NOTE | 2020-02-03 11:31 | NUR ---
PT STATED HIS NAUSEA IS BACK. ADM MYLANTA PO FOR UPSET STOMACH.
--- NOTE | 2020-02-03 15:35 | NUR ---
PT VOMITING DIGESTED FOOD. SEEMS LIKE PT IS HAVING THIS NAUSEA AROUND THE SAME TIME EVERY DAY. NOTIFIED DR. JOHNSON FAST FOOD COOK, ORDERS OBTAINED. VS TAKEN 121/58, PULSE 68. BLOOD SUGAR 123.
[2020-02-03 15:40] VITALS: BP 121/58
[2020-02-03 19:27] VITALS: BP 138/71
--- NOTE | 2020-02-04 03:57 | NUR ---
PATIENT SITTING AT TABLE IN DAY ROOM WITH THREE OF HIS FEMALE PEERS. LAUGHING AND GETTING ALONG WITH EVERYONE. EMESIS BASIN IN PATIENTS LAP, HOWEVER, NO EMESIS NOTED AND DENIES NAUSEA AT THAT TIME. PATIENT WENT TO BED EARLY, BEFORE 2100. DENIES PAIN. WILL MONITOR. SLEEPING THROUGHOUT THE NIGHT AT TIME OF NOTE. WILL MONITOR.
[2020-02-04 08:50] VITALS: BP 122/73
[2020-02-04 12:55] VITALS: BP 128/94
--- NOTE | 2020-02-04 14:11 | NUR ---
Assumed care of patient at 0700. Alert and oriented X4. Cooperative and pleasant. Interacting with peers. Denies SI/HI and AVH. Remains on Fall precautions. Ambulates with walker. Gait steady. Denies pain or discomfort. Participating in groups. Breath sounds clear, bowel sounds present, no abdominal tenderness. Keeps himself busy on the unit.
[2020-02-04] MEDS ORDERED: DIVALPROEX SOD500 M1 PO (15:43)
[2020-02-04] MEDS ORDERED: PROTONIX 20 MG20 M1 PO (15:45)
[2020-02-04] MEDS ORDERED: NAMENDA 5 MG TAB5 M1 PO (15:45)
[2020-02-04 15:49] VITALS: BP 128/94
--- NOTE | 2020-02-06 19:47 | D ---
[facility] [place] [address] DISCHARGE SUMMARY Name: KIERRA CAMILO Room #: 521A-A [facility] IN M.R.#: [id number] Admission: 01/27/20 Attend Phys: Ehsan Bhatia DO Discharge: 02/04/20 Date of : 40 Report #: [id number] THIS REPORT FOR: cc: Jb Lainez,Ehsan Gilliland DO ~ THIS REPORT FOR: //name// CC: Ehsan Lainez DATE OF SERVICE: 02/04/2020 INPATIENT PSYCHIATRIC DISCHARGE SUMMARY ATTENDING PHYSICIAN: Ehsan Bhatia DO. FLIGHT OPERATIONS COORDINATOR AT THE TIME OF DISCHARGE: Jose Chavez MD DISCHARGE DIAGNOSES: Major neurocognitive disorder, likely due to Alzheimer's disease; mild degree with behavioral disturbance, improved; unspecified psychosis, resolved. MEDICAL COMORBIDITIES: As follows: Parkinson's disease, failed tolerance of trial of Sinemet, deferred to outpatient Neurology; moderate ischemic cardiomyopathy, EF 40-45%; outpatient cardiology PCP followup; hypertension; hyperlipidemia; peripheral arterial disease; obstructive sleep apnea, on CPAP; hypothyroidism; diabetes mellitus type 2. DISCHARGE PLAN: Discharging to his home with his Alis. The patient requires 24-hour assistance and supervision with some IADLs including medication management. This is to be provided by the spouse. DISCHARGE DIET: 1800-calorie diabetic diet. DISCHARGE MEDICATIONS: Depakote ER 1000 mg p.o. at bedtime, memantine 5 mg p.o. b.i.d. for cognitive enhancement. The patient should continue on 1-week course of that and 5 in the morning and 10 in the evening for another week and then 10 mg twice a day after that; he was given 5 mg, #60 prescription with the above titration notated. Protonix 20 mg oral daily at 0700 for GERD, atorvastatin 80 mg p.o. daily for hyperlipidemia, finasteride 5 mg p.o. daily for BPH, fenofibrate 145 mg p.o. daily for hypertriglyceridemia, this is home regimen. Levothyroxine 50 mcg p.o. daily for hypothyroidism, midodrine 2.5 mg p.o. b.i.d. for orthostatic hypotension, Plavix 75 mg p.o. daily for WA prevention, metoprolol succinate 100 mg p.o. daily for rate control, prazosin 2 mg p.o. at bedtime for nightmares, Aricept 5 mg p.o. daily. He did have a borderline [address] [address] DISCHARGE SUMMARY Name: KIERRA ACMILO Room #: 521A-A [facility] IN .R.#: [id number] Admission: 01/27/20 Attend Phys: Ehsan Bhatia DO Discharge: 02/04/20 Date of : 40 Report #: [id number] prolonged PA interval, so I elected not to increase the Aricept. LABORATORY DATA THIS ADMISSION: On 01/26/2020, last hemogram with H and H 12.9 and 37.5, white count 5.9, platelet count 212. No gross abnormalities on differential. Chemistries on 01/26/2020: Potassium 4.0, sodium was 139, chloride 105, bicarbonate 23, anion gap 11, BUN 20, creatinine 1.1. EGFR 65, glucose 185, hemoglobin A1c 7.1, estimated average glucose 157, calcium 9.2, magnesium was not checked this admission. AST 12, ALT 16, alkaline phosphatase 38. Vitamin B12 level 1376. REASON FOR ADMISSION: A 79-year-old male who was hospitalized right before COVID epidemic, is now readmitted, and this was back in June due to suicide attempt, now readmitted due to progressive memory difficulties, increased confusion, vague threats, wandering. HOSPITAL COURSE: The patient was admitted to Geriatric Psychiatry Unit. The patient's behavior was very good on the Geriatric Psychiatry Unit. The confusion, possible psychosis for a day or two prior to admission, basically distinguished themselves in the Emergency Room. With regards to the patient's case, we put him on memantine nitration. The exact cardiogram results from earlier this admission were PA interval 203 milliseconds, QT 447, QTC 451 and sinus rhythm. We kept the patient over the weekend to make sure he continued to do well. did not want to place, she is retiring in about 6 months. He is not suicidal or homicidal on the day of discharge. PHYSICAL EXAMINATION: VITAL SIGNS: On the day of discharge, temperature 36.2, pulse 79, respirations 15, BP 128/94, O2 sat not noted. MUSCULOSKELETAL: Ambulates with walker, otherwise normal station. MENTAL STATUS EXAMINATION: This is a well-developed, fairly nourished male, slightly unkempt, appearing stated age. Attention fair. Concentration limited. Speech is normal, rhythm, tone. Thought process is linear and goal oriented. Thought content focused on discharge. No psychomotor agitation. No psychomotor retardation. Denied SI or HI. Denied hopelessness, helplessness. No auditory, visual, or tactile hallucinations. Mood and affect were congruent and euthymic, fair range. Memory not formally tested on the day of discharge. Insight fair to occasionally limited. Judgment fair. Fund of knowledge, no greater than average. [facility] [address] [place] [address] DISCHARGE SUMMARY Name: KIERRA CAMILO Room #: 521A-A [facility] IN M.R.#: [id number] Admission: 01/27/20 Attend Phys: Ehsan Bhatia DO Discharge: 02/04/20 Date of : 40 Report #: [id number] PROGNOSIS: For this patient is guarded given his age of 79 and with a neurodegenerative disorder with a number of accompanied medical comorbidities. <ELECTRONICALLY SIGNED> By: Ehsan Bhatia DO 02/06/20 1947 2217 2305 Ehsan Bhatia DO /nt
== END 2020-02-04 16:00 | disposition home health service (06) | DRG 57 ==
LOC: ER 16:33 → EROBS 01-27 09:29 → SBH 01-27 09:29 → ER 01-27 11:23 → SBH 01-27 12:00
PROVIDERS: Emergency Medicine; ADMIT Psychiatry & Neurology Psychiatry; ATTEND Psychiatry & Neurology Psychiatry
DX: G30.9 Alzheimer's disease, unspecified (principal); F02.81 Dementia in other diseases classified elsewhere, unspecified severity, with behavioral disturbance; F29 Unspecified psychosis not due to a substance or known physiological condition; G20 Parkinson's disease; I25.5 Ischemic cardiomyopathy; G47.33 Obstructive sleep apnea (adult) (pediatric); E78.5 Hyperlipidemia, unspecified; E11.51 Type 2 diabetes mellitus with diabetic peripheral angiopathy without gangrene; K21.9 Gastro-esophageal reflux disease without esophagitis; N40.0 Benign prostatic hyperplasia without lower urinary tract symptoms; E03.9 Hypothyroidism, unspecified; I25.10 Atherosclerotic heart disease of native coronary artery without angina pectoris; I10 Essential (primary) hypertension; E11.42 Type 2 diabetes mellitus with diabetic polyneuropathy; Z20.828 Contact with and (suspected) exposure to other viral communicable diseases; Z95.5 Presence of coronary angioplasty implant and graft; Z79.01 Long term (current) use of anticoagulants; Z79.82 Long term (current) use of aspirin; Z79.84 Long term (current) use of oral hypoglycemic drugs; Z79.899 Other long term (current) drug therapy; Z88.8 Allergy status to other drugs, medicaments and biological substances; Z99.81 Dependence on supplemental oxygen
CPT/HCPCS: 10880

== ENCOUNTER → 2020-04-01 | Outpatient (CLI) | payer OTHER, BC ==
[~2020-04-01] MED LIST changes: +ARICEPT10 M1 PO; +DIVALPROEX SOD500 M1 PO; +NAMENDA 5 MG TAB5 M1 PO; +PROTONIX 20 MG20 M1 PO
== END ==
LOC: SJCVC 13:14
PROVIDERS: ATTEND Internal Medicine Cardiovascular Disease
DX: R94.31 Abnormal electrocardiogram [ECG] [EKG] (principal); I10 Essential (primary) hypertension; I25.10 Atherosclerotic heart disease of native coronary artery without angina pectoris; E78.00 Pure hypercholesterolemia, unspecified; R42 Dizziness and giddiness; Z95.1 Presence of aortocoronary bypass graft

== ENCOUNTER → 2020-08-15 | Outpatient (CLI) | payer OTHER, BC | LOC: SJCVCIMAG 08:27 | PROVIDERS: ATTEND Internal Medicine Cardiovascular Disease | DX: I08.3 Combined rheumatic disorders of mitral, aortic and tricuspid valves (principal); R94.31 Abnormal electrocardiogram [ECG] [EKG]; I25.10 Atherosclerotic heart disease of native coronary artery without angina pectoris; I42.9 Cardiomyopathy, unspecified; E78.00 Pure hypercholesterolemia, unspecified; I95.9 Hypotension, unspecified; E11.9 Type 2 diabetes mellitus without complications; Z98.61 Coronary angioplasty status; Z95.1 Presence of aortocoronary bypass graft; Z98.890 Other specified postprocedural states; Z88.8 Allergy status to other drugs, medicaments and biological substances; Z79.82 Long term (current) use of aspirin; Z79.84 Long term (current) use of oral hypoglycemic drugs; Z79.899 Other long term (current) drug therapy; Z86.73 Personal history of transient ischemic attack (TIA), and cerebral infarction without residual deficits; Z87.891 Personal history of nicotine dependence; Z82.49 Family history of ischemic heart disease and other diseases of the circulatory system ==

== ENCOUNTER → 2020-08-18 | Outpatient (CLI) | payer OTHER, BC | LOC: SJCVCIMAG 07:28 | PROVIDERS: ATTEND Internal Medicine Cardiovascular Disease | DX: I49.3 Ventricular premature depolarization (principal); R06.00 Dyspnea, unspecified; I25.10 Atherosclerotic heart disease of native coronary artery without angina pectoris; I25.5 Ischemic cardiomyopathy; E78.00 Pure hypercholesterolemia, unspecified; R42 Dizziness and giddiness; G20 Parkinson's disease; E11.9 Type 2 diabetes mellitus without complications; Z95.1 Presence of aortocoronary bypass graft; Z98.61 Coronary angioplasty status; Z79.82 Long term (current) use of aspirin; Z79.84 Long term (current) use of oral hypoglycemic drugs; Z79.899 Other long term (current) drug therapy; Z86.73 Personal history of transient ischemic attack (TIA), and cerebral infarction without residual deficits; Z87.891 Personal history of nicotine dependence; Z72.89 Other problems related to lifestyle ==

== ENCOUNTER → 2020-08-27 | Outpatient (CLI) | payer OTHER, BC ==
[2020-08-27 15:15] LABS: BE(vivo) 2.2 mmol/L (-2 to +3); HCO3 24.8 mmol/L (22.0-26.0); PCO2 32.8 mmHg (35.0-45.0); PO2 92.4 mmHg (80.0-100.0); pH 7.497 (7.360-7.450); sO2 97.7 % (92.0-98.0)
== END ==
LOC: PUL 14:40
PROVIDERS: ATTEND Internal Medicine Pulmonary Disease
DX: R06.02 Shortness of breath (principal); G47.11 Idiopathic hypersomnia with long sleep time; G20 Parkinson's disease; F03.90 Unspecified dementia, unspecified severity, without behavioral disturbance, psychotic disturbance, mood disturbance, and anxiety; E08.42 Diabetes mellitus due to underlying condition with diabetic polyneuropathy; G45.9 Transient cerebral ischemic attack, unspecified; G47.33 Obstructive sleep apnea (adult) (pediatric); Z99.89 Dependence on other enabling machines and devices

== ENCOUNTER → 2021-01-23 | Outpatient (CLI) | payer OTHER, BC | LOC: SJCVC 13:39 | PROVIDERS: ATTEND Internal Medicine Cardiovascular Disease | DX: R94.31 Abnormal electrocardiogram [ECG] [EKG] (principal); I45.4 Nonspecific intraventricular block; I25.10 Atherosclerotic heart disease of native coronary artery without angina pectoris; I42.9 Cardiomyopathy, unspecified; R42 Dizziness and giddiness; E78.00 Pure hypercholesterolemia, unspecified; I95.9 Hypotension, unspecified; I34.0 Nonrheumatic mitral (valve) insufficiency; E11.9 Type 2 diabetes mellitus without complications; E78.5 Hyperlipidemia, unspecified; Z79.899 Other long term (current) drug therapy; Z79.82 Long term (current) use of aspirin; Z88.1 Allergy status to other antibiotic agents; Z95.1 Presence of aortocoronary bypass graft; Z86.73 Personal history of transient ischemic attack (TIA), and cerebral infarction without residual deficits; Z87.891 Personal history of nicotine dependence; Z72.89 Other problems related to lifestyle ==

== ENCOUNTER → 2021-04-06 | Outpatient (CLI) | payer OTHER, BC | LOC: SJCVC 15:01 | PROVIDERS: ATTEND Internal Medicine Cardiovascular Disease | DX: R94.31 Abnormal electrocardiogram [ECG] [EKG] (principal); I49.3 Ventricular premature depolarization; I48.0 Paroxysmal atrial fibrillation; I63.9 Cerebral infarction, unspecified; I65.29 Occlusion and stenosis of unspecified carotid artery; I25.10 Atherosclerotic heart disease of native coronary artery without angina pectoris; E11.42 Type 2 diabetes mellitus with diabetic polyneuropathy; I42.9 Cardiomyopathy, unspecified; I95.9 Hypotension, unspecified; E78.00 Pure hypercholesterolemia, unspecified; I34.0 Nonrheumatic mitral (valve) insufficiency; I82.401 Acute embolism and thrombosis of unspecified deep veins of right lower extremity; Z88.8 Allergy status to other drugs, medicaments and biological substances; Z79.84 Long term (current) use of oral hypoglycemic drugs; Z79.899 Other long term (current) drug therapy; E78.5 Hyperlipidemia, unspecified; G47.33 Obstructive sleep apnea (adult) (pediatric); Z72.89 Other problems related to lifestyle; Z87.891 Personal history of nicotine dependence ==

== ENCOUNTER → 2021-04-29 | Outpatient (CLI) | payer OTHER, BC | LOC: SJCVC 13:31 | PROVIDERS: ATTEND Nuclear Medicine Nuclear Cardiology | DX: I77.9 Disorder of arteries and arterioles, unspecified (principal); I25.10 Atherosclerotic heart disease of native coronary artery without angina pectoris; I10 Essential (primary) hypertension; I63.9 Cerebral infarction, unspecified; I42.9 Cardiomyopathy, unspecified; I48.91 Unspecified atrial fibrillation; E78.00 Pure hypercholesterolemia, unspecified; G20 Parkinson's disease; E11.42 Type 2 diabetes mellitus with diabetic polyneuropathy; G47.33 Obstructive sleep apnea (adult) (pediatric); E78.5 Hyperlipidemia, unspecified; Z87.891 Personal history of nicotine dependence; Z88.8 Allergy status to other drugs, medicaments and biological substances; Z79.82 Long term (current) use of aspirin; Z79.84 Long term (current) use of oral hypoglycemic drugs; Z79.899 Other long term (current) drug therapy ==

== ENCOUNTER → 2021-05-26 | Outpatient (CLI) | payer OTHER, BC ==
[~2021-05-26] VITALS: Ht 172.7 cm; Wt 81.6 kg
[~2021-05-26] MED LIST changes: +DIVALPROEX SOD250 M1 PO; +FARXIGA5 MG PO; +FLOMAX0.4 MG PO; +PROTONIX40 M2 PO; +SUPER THERAVIT1 EACH PO; +XARELTO15 MG PO; +ZETIA10 MG PO
[2021-05-26 08:44] VITALS: BP 119/72
[2021-05-26 09:04] LABS: HEMATOCRIT 39.1 % (42.0-52.0); HEMOGLOBIN 12.9 gm/dL (14.0-18.0); MCH 30.5 pg (26.0-34.0); MCHC 32.9 g/dL (28.0-37.0); MCV 92.6 fL (80.0-100.0); RBC 4.22 mil/uL (4.50-6.00); RDW 13.9 % (10.5-14.5)
[2021-05-26 09:23] LABS: CALCIUM 9.4 mg/dL (8.5-10.1); CREATININE 1.2 mg/dL (0.7-1.3); POTASSIUM 4.1 mmol/L (3.5-5.1)
--- NOTE | 2021-05-26 10:53 | EKG ---
[address] [employer] [place] [address] ELECTROCARDIOGRAM REPORT Name: KIERRA CAMILO Room #: [facility]#: [id number] Admission: 05/26/21 Attend Phys: Christian Mares MD Discharge: Date of : 40 Report #: [id number] [facility] Test Date: 2021-05-26 Test Time: 08:52:51 Pat Name: KIERRA CAMILO Department: Room: Gender: M Office Asst: [facility] : 1940 Requested By: Christian Mares Order Number: [id number] MD: Isra Ramírez Measurements Intervals Liberal Rate: 64 P: 54 DC: 193 QRS: -42 QRSD: 142 T: 189 QT: 426 QTc: 440 Interpretive Statements Sinus arrhythmia Nonspecific IVCD with LAD Anteroseptal infarct, old Compared to ECG 01/26/2020 17:25:50 Intraventricular conduction delay now present Myocardial infarct finding now present Sinus rhythm no longer present Electronically Signed On 05-26-2021 10:53:31 MANUFACTURING MAINTENANCE MECHANIC by Isra Ramírez [email or web address] <ELECTRONICALLY SIGNED> By: Isra Ramírez MD, [facility] 05/26/21 1053 0852 0852 Isra Ramírez MD, [facility] /EPI
--- NOTE | 2021-05-27 09:28 | CATHLAB ---
[facility] [place] [address] INVASIVE PROCEDURE REPORT Name: CAMILOKIERRA D Room #: REG [facility]#: [id number] Admission: 05/26/21 Attend Phys: Christian Mares MD Discharge: Date of : 40 Report #: [id number] THIS REPORT FOR: cc: Christian Sommer MD, David A. MD Park, Jin S. MD ~ APPROVED REPORT Study performed: 05/26/2021 15:04:02 Patient Details Patient Status: Out-Patient Room #: The patient is a 81 year-old male Event Personnel Terence Katz Foam Caster, Leslie Andre RN RN, Sol Sun, Cherie Gant RTR Monitor Procedures Performed Coronary Angiography Only [id number] CORANG Hemostasis w/ Mynx 85120 Initial Mod Sed Same Phys/QHP Gr5y 168702 Indication Dyspnea, Positive stress test Risk Factors Cerebrovascular DiseasePeripheral Vascular Disease, Hypercholesterolemia, Coronary Artery DiseaseHypertension, Diabetes Previous Procedures/Diagnoses Previous CABGPrevious CVAPrevious PCI, Previous SD Procedure Narrative The was infiltrated with 1% Lidocaine subcutaneous anesthesia. A 5F 11CM CORDIS sheath was inserted into the RFA^. Coronary angiography was performed using coronary diagnostic catheters. The right coronary system was accessed and visualized with a 5FR JR 4 #[id number] catheter. The left coronary system was accessed and visualized with a 5FR JL4 #[id number] catheter. Pre-demployment femoral angiogram was performed . Closure device was deployed with a 5 Fr MYNXGRIP 5F #[id number]. The patient tolerated the procedure well and there were no complications associated with the procedure. Intraoperative Conscious Sedation [facility] [address] [place] [address] INVASIVE PROCEDURE REPORT Name: KIERRA CAMILO [facility] [id number] Admission: 05/26/21 Attend Phys: Christian Mares, Discharge: Date of : 40 Report #: [id number] Sedation start time: 14:16 Case end Time: 15:44 Fentanyl 25 mcg Versed 0.5 mg Conscious sedation is a combined total of carotid procedure and heart cath. Fluoro time and dosage is a combined total of carotid procedure and heart cath. Omnipaque contrast total is 139 ml for the carotid procedure. Visipaque contrast total is 130ml for the heart cath. Fluoro Time: 14.15 minutes Dose: DAP 15.00 cGycm2 1135 mGy Contrast Type and Amount: Omnipaque 139 ml Coronary Angiography The patient's coronary anatomy is right dominant. Diagnostic Cath Left Main There is a subtotal occlusion of the distal left main. LAD There is a patent GRAYSON graft with an end-to-side anastomosis to the mid LAD. There is both retrograde and anterograde flow in the hamilton LAD artery. Circumflex The SVG to OM1 is occluded at the ostium. OM1 This is a moderate size caliber vessel, filled via collateral circulation from the PDA. Right Coronary The RCA is occluded at the ostium. R PDA There is a patent SVG with an end-to-side anastomosis to the PDA. After anastomosis, there is retrograde filling of the RPL branch. Antegrade flow down the PDA, supplies collaterals to OM1. Left Ventriculography Left Ventriculography was not performed. Ejection Fraction was 30-35% based off patient's Echocardiogram. Hemodynamics The aortic pressure is 157/67 mmHg with a mean of 97 mmHg. Conclusion 1. There is a patent GRAYSON graft to the LAD. 2. There is a patent SVG to the PDA. 3. The SVG to OM1 is occluded. 4. There is collateral flow to OM1 and diagonal arteries. [facility] [address] [place] [address] INVASIVE PROCEDURE REPORT Name: KIERRA CAMILO Room #: REG [facility]#: [id number] Admission: 05/26/21 Attend Phys: Christian Mares, Discharge: Date of : 40 Report #: [id number] 5. Recommend risk factor management and guideline directed medical therapy. <ELECTRONICALLY SIGNED> By: Terence Katz MD 05/27/21927 7 0928 Terence Katz MD /INF
== END | disposition home or self-care (01) ==
LOC: CATH 07:44
PROVIDERS: ATTEND Nuclear Medicine Nuclear Cardiology
DX: R94.39 Abnormal result of other cardiovascular function study (principal); I25.810 Atherosclerosis of coronary artery bypass graft(s) without angina pectoris; I65.23 Occlusion and stenosis of bilateral carotid arteries; I70.1 Atherosclerosis of renal artery; I73.9 Peripheral vascular disease, unspecified; M79.604 Pain in right leg; M79.605 Pain in left leg; R06.00 Dyspnea, unspecified; I10 Essential (primary) hypertension; E11.9 Type 2 diabetes mellitus without complications; E78.00 Pure hypercholesterolemia, unspecified; G47.30 Sleep apnea, unspecified; Z98.890 Other specified postprocedural states; Z79.899 Other long term (current) drug therapy; Z79.82 Long term (current) use of aspirin; Z86.73 Personal history of transient ischemic attack (TIA), and cerebral infarction without residual deficits; Z88.8 Allergy status to other drugs, medicaments and biological substances; Z87.891 Personal history of nicotine dependence

== ENCOUNTER → 2021-06-30 | Outpatient (CLI) | payer OTHER, BC | LOC: SJCVC 13:19 | PROVIDERS: ATTEND Internal Medicine Cardiovascular Disease | DX: I49.1 Atrial premature depolarization (principal); R94.31 Abnormal electrocardiogram [ECG] [EKG]; I63.9 Cerebral infarction, unspecified; I77.9 Disorder of arteries and arterioles, unspecified; I48.0 Paroxysmal atrial fibrillation; I42.9 Cardiomyopathy, unspecified; R42 Dizziness and giddiness; E78.00 Pure hypercholesterolemia, unspecified; I34.0 Nonrheumatic mitral (valve) insufficiency; I82.401 Acute embolism and thrombosis of unspecified deep veins of right lower extremity; Z88.8 Allergy status to other drugs, medicaments and biological substances; Z79.82 Long term (current) use of aspirin; Z79.899 Other long term (current) drug therapy; I10 Essential (primary) hypertension; E78.5 Hyperlipidemia, unspecified; I65.29 Occlusion and stenosis of unspecified carotid artery; E11.9 Type 2 diabetes mellitus without complications; Z87.891 Personal history of nicotine dependence ==